=== PATIENT | male | born 1935 | race Caucasian/White ===

== ENCOUNTER 2016-08-20 20:32 | Emergency (ER) | payer MEDICARE, OTHER ==
[2016-08-20] MEDS ORDERED: Famotidine 20 MG/2 ML SDV IVPUSH ONE (20:51)
[2016-08-20] MEDS ORDERED: Sodium Chloride 0.9% 10 ML Syringe FLUSH PRN (20:51)
[2016-08-20] MEDS ORDERED: HYDROmorphone 0.5 MG/0.5 ML Syringe IVPUSH ONE (20:51)
[2016-08-20] MEDS ORDERED: Ondansetron 4 MG/2 ML SDV IVPUSH ONE (20:51)
--- NOTE | 2016-08-20 20:56 | EDM.PDOC ---
ED HPI GI/ABDOMINAL - General Chief Complaint: Chest Pain Stated Complaint: CHEST PAIN Time Seen by Provider: 08/20/16 20:43 Source of Information: Reports: Patient, RN notes reviewed - History of Present Illness INITIAL COMMENTS - FREE TEXT/NARRATIVE: 81-year-old male comes in with acute onset upper mid abdominal discomfort radiating into his back. Started about 1-1/2 hours ago shortly after eating this evening. The pain is sharp, shooting and persistent. He states this feels very similar to when he had a "gallbladder attack problem about one year ago. The pain does not go up to the mid or upper chest. Does not radiate to his left shoulder or warm. He does not feel short of breath. So far he has had no nausea or vomiting. He does have history of hypertension and is on medication for that. He is not diabetic and denies personal history for known coronary artery disease. - Related Data Allergies/ADRs: Allergies Allergy/AdvReac Type Severity Reaction Status Date / Time No Known Allergies Allergy Verified 08/20/16 20:41 Home Meds: Home Meds Acetaminophen [Tylenol Arthritis Pain] 1 tab PO BID 09/22/15 [History] Alfuzosin [Uroxatral] 10 mg PO DAILY 09/22/15 [History] Aspirin 81 mg PO DAILY 09/22/15 [History] Cetirizine [ZyrTEC] 10 mg PO DAILY 09/22/15 [History] Cinnamon Bark [Cinnamon] 1,000 mg PO DAILY 09/22/15 [History] Ezetimibe [Zetia] 5 mg PO DAILY 09/22/15 [History] Fosinopril [Monopril] 40 mg PO DAILY 09/22/15 [History] Hydrochlorothiazide 12.5 mg PO DAILY 09/22/15 [History] Multivitamin [Multivitamins] 1 tab PO BID 09/22/15 [History] Niacin [Niacin ER] 1,000 mg PO DAILY 09/22/15 [History] Omeprazole 20 mg PO BID 09/22/15 [History] Propranolol HCl 40 mg PO DAILY 09/22/15 [History] Hydrocodone/Acetaminophen [Hydrocodon-Acetaminophen 5-325] 1 - 2 each PO Q6HR PRN #20 tablet 09/23/15 [Rx] Past Medical History HEENT History: Reports: Cataract, Impaired vision Cardiovascular History: Reports: Hypertension Gastrointestinal History: Reports: GERD, PUD - Past Surgical History HEENT Surgical History: Reports: Naso-sinus surgery GI Surgical History: Reports: Other (see below) Other GI Surgeries/Procedures: hemorrhoidectomy Male Surgical History: Reports: TURP-Transurethral resection of prostate Social & Family History - Family History Family Medical History: Noncontributory Cardiac: Reports: OR - Tobacco Use Smoking Status *Q: Never Smoker Years of Tobacco use: 20 Packs/Tins Daily: 1 - Alcohol Use Number of Drinks Per Day: 1 - Recreational Drug Use Recreational Drug Use: No ED ROS GENERAL - Review of Systems Review Of Systems: See Below Constitutional: Denies: fever, chills HEENT: Reports: No symptoms Respiratory: Denies: shortness of breath, pleuritic chest pain, cough Cardiovascular: Denies: Chest pain GI/Abdominal: Reports: Abdominal pain (upper mid abdomen with radiation to his back). Denies: Diarrhea, Nausea, Vomiting Musculoskeletal: Reports: back pain. Denies: shoulder pain, arm pain Skin: Reports: no symptoms Neurological: Reports: no symptoms. Denies: dizziness ED EXAM, GI/ABD - Physical Exam Exam: See Below Exam Limited By: No limitations General Appearance: alert, moderate distress Eyes: bilateral: normal appearance, EOMI Throat/Mouth: Normal inspection, Normal oropharynx Head: atraumatic. No: facial swelling Neck: supple, full range of motion, other (no JVD) Respiratory/Chest: no respiratory distress, lungs clear, normal breath sounds Cardiovascular: regular rate, rhythm GI/Abdominal: tenderness (upper midabdomen, mild tenderness right upper quadrant , abdomen otherwise soft and nontender). No: guarding, rebound Back Exam: No: CVA tenderness (L), CVA tenderness (R) Extremities: normal inspection. No: pedal edema, leg pain Neurological: alert, oriented, no motor/sensory deficits Skin Exam: Warm, Dry, Normal color EKG INTERPRETATION EKG Date: 08/20/16 Rhythm: NSR [place]: normal P-wave: present QRS: other (Q waves present in inferior leads) ST-T: normal Course - Vital Signs Last Recorded V/S: Last Vital Signs Temp 97.4 F 08/20/16 20:36 Pulse 63 08/20/16 20:36 Resp 20 08/20/16 20:36 BP 183/103 H 08/20/16 20:36 Pulse Ox 96 08/20/16 20:36 - Orders/Labs/Meds Orders: Active Orders 24 hr Category Date Time Status EKG 12 Lead [EKG Documentation Completion] [RC] STAT Care 08/20/16 20:50 Active Peripheral IV Care [RC] . DIRECTED Care 08/20/16 20:52 Active Ketorolac [Toradol] Med 08/20/16 21:00 Active 30 mg IVPUSH ONETIME Sodium Chloride 0.9% [Normal Saline] 1,000 ml Med 08/20/16 21:00 Active IV ASDIRECTED Sodium Chloride 0.9% [Saline Flush] Med 08/20/16 20:51 Active 10 ml FLUSH ASDIRECTED PRN Peripheral IV Insertion Adult [OM.PC] Stat Oth 08/20/16 20:50 Ordered Medication Orders Sodium Chloride (Normal Saline) 1,000 mls @ 150 mls/hr IV ASDIRECTED BRIANA Last Admin: 08/20/16 21:07 Dose: 150 mls/hr Ketorolac Tromethamine (Toradol) 30 mg IVPUSH ONETIME BRIANA Last Admin: 08/20/16 21:08 Dose: 30 mg Sodium Chloride (Saline Flush) 10 ml FLUSH ASDIRECTED PRN PRN Reason: Keep Vein Open Last Admin: 08/20/16 21:10 Dose: 10 ml Labs: Laboratory Tests 08/20/16 08/20/16 Range/Units 20:45 20:45 WBC 6.71 (4.23-9.07) K/mm3 RBC 4.82 (4.63-6.08) M/mm3 Hgb 15.9 (13.7-17.5) gm/L Hct 46.2 (40.1-51.0) % MCV 95.9 H (79.0-92.2) fl MCH 33.0 H (25.7-32.2) pg MCHC 34.4 (32.2-35.5) g/dl RDW Std Deviation 43.9 (35.1-43.9) fL Plt Count 191 (163-337) K/mm3 MPV 9.3 L (9.4-12.3) fl Neut % (Auto) 64.2 (34.0-67.9) % Lymph % (Auto) 24.1 (21.8-53.1) % [place] % (Auto) 9.5 (5.3-12.2) % Eos % (Auto) 1.9 (0.8-7.0) Baso % (Auto) 0.3 (0.1-1.2) % Neut # 4.30 (1.78-5.38) K/mm3 Lymph # 1.62 (1.32-3.57) K/mm3 [place] # 0.64 (0.30-0.82) K/mm3 Eos # 0.13 (0.04-0.54) K/mm3 Baso # 0.02 (0.01-0.08) K/mm3 Sodium 143 (136-145) mEq/L Potassium 3.8 (3.5-5.1) mEq/L Chloride 103 (98-107) mEq/L Carbon Dioxide 31 (21-32) mEq/L Anion Gap 12.8 (5-15) BUN 17 (7-18) mg/dL Creatinine 1.1 (0.7-1.3) mg/dL Est Cr Clr Drug Dosing 48.33 mL/min Estimated GFR (MDRD) > 60 (>60) mL/min BUN/Creatinine Ratio 15.5 (14-18) Glucose 139 H (83-115) mg/dL Calcium 9.2 (8.5-10.1) mg/dL Total Bilirubin 0.3 (0.2-1.0) mg/dL GGT 36 (15-85) U/L AST 24 (15-37) U/L ALT 50 (16-63) U/L Alkaline Phosphatase 63 (46-116) U/L Troponin I < 0.017 (0.00-0.056) ng/mL Total Protein 7.9 (6.4-8.2) g/dl Albumin 4.0 (3.4-5.0) g/dl Globulin 3.9 gm/dL Albumin/Globulin Ratio 1.0 (1-2) Lipase 207 (73-393) U/L Meds: Medications Generic Name Dose Route Start Last Admin Trade Name Freq PRN Reason Stop Dose Admin Sodium Chloride 1,000 mls @ 150 mls/hr 08/20/16 21:00 08/20/16 21:07 Normal Saline IV 150 mls/hr ASDIRECTED BRIANA Administration Ketorolac Tromethamine 30 mg 08/20/16 21:00 08/20/16 21:08 Toradol IVPUSH 30 mg ONETIME BRIANA Administration Sodium Chloride 10 ml 08/20/16 20:51 08/20/16 21:10 Saline Flush FLUSH 10 ml ASDIRECTED PRN Administration Keep Vein Open Discontinued Medications Generic Name Dose Route Start Last Admin Trade Name Grey PRN Reason Stop Dose Admin Famotidine 20 mg 08/20/16 20:51 08/20/16 21:08 Pepcid IVPUSH 08/20/16 20:52 20 mg ONETIME ONE Administration Hydromorphone HCl 0.5 mg 08/20/16 20:51 08/20/16 21:07 Dilaudid IVPUSH 08/20/16 20:52 0.5 mg ONETIME ONE Administration Ondansetron HCl 4 mg 08/20/16 20:51 08/20/16 21:07 Zofran IVPUSH 08/20/16 20:52 4 mg ONETIME ONE Administration - Re-Assessments/Exams Free Text/Narrative Re-Assessment/Exam: 08/20/16 22:08. patient has had excellent relief of his discomfort after Dilaudid 0.5 mg IV, Toradol 30 mg IV, Levsin 0.125 sublingual. His pain is about gone. Labs are back and they all look good. He did review his ultrasound of about one year ago and he did have gallstones at that time but no obstruction or inflammation having experience symptoms very similar to what he has experienced this evening. Will Observe him for a while longer and he continues to do well should be able to let him go home. Departure - Departure Time of Disposition: 22:36 Disposition: Home, Self-Care 01 Condition: fair Clinical Impression: Abdominal pain, Gallstones Referrals: Bandar Crooks MD [Primary Care Provider] - Forms: ED Department Discharge Additional Instructions: rest, clear liquids only this evening, then clear liquids and very careful bland diet tomorrow as tolerated, avoid all fatty foods for the next several days and be careful of fatty foods after that. Return to ED if pain reoccurring or symptoms otherwise worsening in any way, followup with Dr. Dent if continuing to have abdominal discomfort, especially after eating. call [phone] if needed for appointment. Do not drive for the next 8 hours as sedative medication has been given to you while here in the ED. - My Orders Last 24 Hours: My Active Orders 08/20/16 20:50 EKG 12 Lead [EKG Documentation Completion] [RC] STAT Peripheral IV Insertion Adult [OM.PC] Stat 08/20/16 20:51 Sodium Chloride 0.9% [Saline Flush] 10 ml FLUSH ASDIRECTED PRN 08/20/16 20:52 Peripheral IV Care [RC] . DIRECTED 08/20/16 21:00 Ketorolac [Toradol] 30 mg IVPUSH ONETIME Sodium Chloride 0.9% [Normal Saline] 1,000 ml IV ASDIRECTED - Assessment/Plan Last 24 Hours: My Active Orders 08/20/16 20:50 EKG 12 Lead [EKG Documentation Completion] [RC] STAT Peripheral IV Insertion Adult [OM.PC] Stat 08/20/16 20:51 Sodium Chloride 0.9% [Saline Flush] 10 ml FLUSH ASDIRECTED PRN 08/20/16 20:52 Peripheral IV Care [RC] . DIRECTED 08/20/16 21:00 Ketorolac [Toradol] 30 mg IVPUSH ONETIME Sodium Chloride 0.9% [Normal Saline] 1,000 ml IV ASDIRECTED
[2016-08-20] MEDS ORDERED: Sodium Chloride 0.9% 1,000 ML IV SCH (21:00)
[2016-08-20] MEDS ORDERED: Ketorolac 30 MG/ML SDV IVPUSH SCH (21:00)
[2016-08-20 23:31] VITALS: BP 146/76
== END 2016-08-20 23:15 | disposition home or self-care (01) ==
LOC: JD.ED 20:32
DX: K80.20 Calculus of gallbladder without cholecystitis without obstruction (principal); I10 Essential (primary) hypertension; K21.9 Gastro-esophageal reflux disease without esophagitis; Z98.890 Other specified postprocedural states; Z79.82 Long term (current) use of aspirin; Z79.899 Other long term (current) drug therapy
CPT/HCPCS: 36415; 80053; 82977; 83690; 84484; 85025; 93005; 96361; 96374; 96375; 99285; J1170; J1885; J2405; J7040; J7050; 99284

== ENCOUNTER 2019-08-03 06:00 | Inpatient (IN) | payer MEDICARE, OTHER ==
[~2019-08-03 06:00] MED LIST: Lidocaine 1%/Sod Bicarbonate in NS 8.4% 1 ML Syringe IDERM PRN; Sodium Chloride 0.9% 10 ML Syringe FLUSH PRN
[2019-08-03] MEDS ORDERED: ceFAZolin 1 GM Vial ONE ×2 (06:18→06:30)
[2019-08-03] MEDS ORDERED: Iodine/Sodium Iodide 2% Tincture 30 ML Bottle ONE (06:18)
[2019-08-03] MEDS ORDERED: Vancomycin 1 GM SDV ONE (06:18)
[2019-08-03] MEDS ORDERED: Rocuronium 50 MG/5 ML Vial ONE (06:25)
[2019-08-03] MEDS ORDERED: Ondansetron 4 MG/2 ML SDV ONE (06:25)
[2019-08-03] MEDS ORDERED: Midazolam 1 MG/ML 2 ML SDV ONE (06:25)
[2019-08-03] MEDS ORDERED: fentaNYL 100 MCG/2 ML SDV ONE ×2 (06:25→08:15)
[2019-08-03] MEDS ORDERED: Propofol 200 MG/20 ML SDV ONE (06:25)
[2019-08-03] MEDS ORDERED: Lidocaine 1% 6 ML ONE (06:26)
[2019-08-03] MEDS ORDERED: Ropivacaine 0.5% 5 MG/ML 30 ML SDV ONE (06:33)
[2019-08-03] MEDS: Lactated Ringers 1,000 ML IV SCH ×3 (06:41→15:03)
--- NOTE | 2019-08-03 06:45 | PCM.PREANE ---
Preanesthetic Assessment - Anesthesia/Transfusion/Family Hx Anesthesia History: Prior Anesthesia Without Reaction Family History of Anesthesia Reaction: No Transfusion History: Prior Transfusion Without Reaction - Review of Systems General: No Symptoms Pulmonary: No Symptoms Cardiovascular: No Symptoms Gastrointestinal: No Symptoms Neurological: No Symptoms Other: Reports: None - Physical Assessment NPO Status Date: 08/02/19 NPO Status Time: 17:30 Vital Signs: Last Vital Signs Temp 36.3 C 08/03/19 06:10 Pulse 60 08/03/19 06:10 Resp 16 08/03/19 06:10 BP 132/73 08/03/19 06:10 Pulse Ox 99 08/03/19 06:10 Height: 1.68 m Weight: 95.254 kg ASA Class: 3 Mental Status: Alert & Oriented x3 Airway Class: Mallampati = 3 Dentition: Reports: Dentures Thyro-Mental Finger Breadths: 2 Mouth Opening Finger Breadths: 2 ROM/Head Extension: Limited/Partial Lungs: Clear to Auscultation, Normal Respiratory Effort Cardiovascular: Regular Rate, Regular Rhythm - Lab Values: Laboratory Last Values MRSA (PCR) Negative 07/21/19 14:15 - Allergies Allergies/Adverse Reactions: Allergies Allergy/AdvReac Type Severity Reaction Status Date / Time [id number] Reductase Allergy Muscle Verified 07/31/19 11:52 Inhibitor Aches - Blood Blood Available: No Product(s) Available: None - Anesthesia Plan Pre-Op Medication Ordered: Beta Andrea Beta Andrea: Propranolol Med Last Dose Date: 08/03/19 Med Last Dose Time: 05:30 - Acknowledgements Anesthesia Type Planned: General Anesthesia Pt an Appropriate Candidate for the Planned Anesthesia: Yes Alternatives and Risks of Anesthesia Discussed w Pt/Guardian: Yes Pt/Guardian Understands and Agrees with Anesthesia Plan: Yes PreAnesthesia Questionnaire HEENT History: Reports: Cataract, Impaired Vision, Other (See Below) Other HEENT History: otorrhea of left ear, otogenic pain, nasal polyps Cardiovascular History: Reports: High Cholesterol, Hypertension Respiratory History: Reports: Sleep Apnea Gastrointestinal History: Reports: Colon Polyp, GERD, PUD, Other (See Below) Other Gastrointestinal History: colon neoplasm, hemorrhage of rectum/anus Genitourinary History: Reports: BPH DIAMOND BLENDER History: Reports: None Musculoskeletal History: Reports: Other (See Below) Other Musculoskeletal History: joint pain, carpal tunnel syndrome, knee pain Neurological History: Reports: Other (See Below) Other Neuro History: cerviclagia, tremor, paresthesia Psychiatric History: Reports: None Endocrine/Metabolic History: Reports: None Hematologic History: Reports: None Immunologic History: Reports: None Oncologic (Cancer) History: Reports: Prostate Dermatologic History: Reports: Other (See Below) Other Dermatologic History: skin hypertrophy - Past Surgical History Head Surgeries/Procedures: Reports: None HEENT Surgical History: Reports: Myringotomy w Tube(s), Naso-Sinus Surgery, Other (See Below) Other HEENT Surgeries/Procedures: uvulectomy Cardiovascular Surgical History: Reports: None Respiratory Surgical History: Reports: None GI Surgical History: Reports: Colonoscopy, Other (See Below) Other GI Surgeries/Procedures: hemorrhoidectomy Female Surgical History: Reports: None Male Surgical History: Reports: TURP-Transurethral Resection of Prostate Endocrine Surgical History: Reports: None Neurological Surgical History: Reports: None Musculoskeletal Surgical History: Reports: Other (See Below) Other Musculoskeletal Surgeries/Procedures:: carpal tunnel release, right knee arthroscopy, right ulnar nerve transposition Oncologic Surgical History: Reports: None - SUBSTANCE USE Smoking Status *Q: Former Smoker Tobacco Use Within Last Twelve Months: No Second Hand Smoke Exposure: No Days Per Week of Alcohol Use: 7 Number of Drinks Per Day: 1 Total Drinks Per Week: 7 Recreational Drug Use History: No - HOME MEDS Home Medications: Home Meds Acetaminophen [Tylenol Arthritis Pain] 1 tab PO Q8H PRN 09/22/15 [History] Aspirin 81 mg PO DAILY 09/22/15 [History] Cetirizine [ZyrTEC] 10 mg PO DAILY 09/22/15 [History] Ezetimibe [Zetia] 5 mg PO DAILY 09/22/15 [History] Fosinopril [Monopril] 40 mg PO DAILY 09/22/15 [History] Hydrochlorothiazide 12.5 mg PO DAILY 09/22/15 [History] Multivitamin [Multivitamins] 1 tab PO BID 09/22/15 [History] Propranolol HCl 40 mg PO DAILY 09/22/15 [History] - CURRENT (IN HOUSE) MEDS Current Meds: Current Medications Lactated Ringer's (Ringers, Lactated) 1,000 mls @ 125 mls/hr IV ASDIRECTED BRIANA Stop: 02/24/20 23:00 Lidocaine/Sodium Bicarbonate (Buffered Lidocaine 1% In Ns 8.4%) 0.25 ml IDERM ONETIME PRN PRN Reason: Prior to IV Start Stop: 08/03/19 18:00 Sodium Chloride (Saline Flush) 10 ml FLUSH ASDIRECTED PRN PRN Reason: Keep Vein Open Stop: 08/03/19 18:00 Discontinued Medications Cefazolin Sodium (Ancef) Confirm Administered Dose 2 gm .ROUTE .STK-MED ONE Stop: 08/03/19 06:19 Cefazolin Sodium (Ancef) Confirm Administered Dose 2 gm .ROUTE .STK-MED ONE Stop: 08/03/19 06:31 Fentanyl (Sublimaze) Confirm Administered Dose 100 mcg .ROUTE .STK-MED ONE Stop: 08/03/19 06:26 Lidocaine HCl (Xylocaine-Mpf 1%) Confirm Administered Dose 6 mls @ as directed .ROUTE .STK-MED ONE Stop: 08/03/19 06:27 Iodine (Iodine 2% Mild Tincture) Confirm Administered Dose 30 ml .ROUTE .STK- MED ONE Stop: 08/03/19 06:19 Midazolam HCl (Versed 1 Mg/Ml) Confirm Administered Dose 2 mg .ROUTE .STK-MED ONE Stop: 08/03/19 06:26 Ondansetron HCl (Zofran) Confirm Administered Dose 4 mg .ROUTE .STK-MED ONE Stop: 08/03/19 06:26 Propofol (Diprivan 20 Ml) Confirm Administered Dose 200 mg .ROUTE .STK-MED ONE Stop: 08/03/19 06:26 Rocuronium [place] (Zemuron) Confirm Administered Dose 50 mg .ROUTE .STK-MED ONE Stop: 08/03/19 06:26 Ropivacaine (Naropin 0.5%) Confirm Administered Dose 30 ml .ROUTE .STK-MED ONE Stop: 08/03/19 06:34 Tranexamic Acid (Cyklokapron) Confirm Administered Dose 1,000 mg .ROUTE .STK- MED ONE Stop: 08/03/19 06:19 Vancomycin HCl (Vancomycin) Confirm Administered Dose 1 gm .ROUTE .STK-MED ONE Stop: 08/03/19 06:19
[2019-08-03] MEDS ORDERED: Cyclobenzaprine 10 MG Tab PO PRN (06:50)
[2019-08-03] MEDS ORDERED: Ketorolac 15 MG/ML SDV IVPUSH PRN (06:50)
[2019-08-03] MEDS ORDERED: Acetaminophen/HYDROcodone 325-5 MG Tab PO PRN (06:58)
[2019-08-03] MEDS ORDERED: Ondansetron 4 MG/2 ML SDV IVPUSH PRN (06:58)
[2019-08-03] MEDS ORDERED: Sennosides 8.6 MG Tab PO PRN (06:58)
[2019-08-03] MEDS ORDERED: Naloxone 0.4 MG/ML SDV IVPUSH PRN (06:58)
[2019-08-03] MEDS ORDERED: Bisacodyl 5 MG Tab PO PRN (06:58)
[2019-08-03] MEDS ORDERED: Morphine 2 MG/ML Syringe IVPUSH PRN (06:58)
[2019-08-03] MEDS ORDERED: Magnesium Hydroxide 400 MG/5 ML Susp 30 ML Cup PO PRN (06:58)
[2019-08-03] MEDS ORDERED: ePHEDrine Sulfate/0.9% NaCl/Pf 25 MG/5 ML SYRINGE IV ONE (07:31)
[2019-08-03] MEDS ORDERED: Lactated Ringers 1,000 ML ONE (07:39)
--- NOTE | 2019-08-03 08:42 | PCM.CONS ---
H&P History of Present Illness - General Date of Service: 08/03/19 Admit Problem/Dx: Admission Diagnosis/Problem Admission Diagnosis/Problem Shoulder pain Source of Information: Patient, Old Records, Provider, RN, RN Notes Reviewed History Limitations: Reports: No Limitations - History of Present Illness Initial Comments - Free Text/Narative: Nhan Mason is an 84 yo male patient of Dr. Bejarano who is post-operative day 0 of right RTSA. Hospital medicine was consulted for post-operative medical care of the following listed medical conditions. At this time he is resting comfortably in bed. Pain is controlled. He denies any chest pain, shortness of breath, palpitations, nausea, or vomiting. He carries a history of: EMILY with home CPAP, HTN, LUTS, Rectal hemorrhage, Gallstones, BPH, Tremor, HLD, Lung base scarring, Colon cancer, Paresthesia, Otorrhea of left ear. He is a former smoker. He is a full code. His primary care provider is Dr. Crooks. - Related Data Allergies/Adverse Reactions: Allergies Allergy/AdvReac Type Severity Reaction Status Date / Time Gvblqdw-Kyq-Ilr Reductase Allergy Muscle Verified 08/03/19 06:41 Inhibitor Aches Home Medications: Home Meds Aspirin 81 mg PO DAILY 09/22/15 [History] Cetirizine [ZyrTEC] 10 mg PO DAILY 09/22/15 [History] Ezetimibe [Zetia] 5 mg PO DAILY 09/22/15 [History] Fosinopril [Monopril] 40 mg PO DAILY 09/22/15 [History] Hydrochlorothiazide 12.5 mg PO DAILY 09/22/15 [History] Multivitamin [Multivitamins] 1 tab PO BID 09/22/15 [History] Propranolol HCl 40 mg PO BID 09/22/15 [History] Ibuprofen 400 mg PO BID 08/03/19 [History] Past Medical History HEENT History: Reports: Cataract, Impaired Vision, Other (See Below) Other HEENT History: otorrhea of left ear, otogenic pain, nasal polyps Cardiovascular History: Reports: High Cholesterol, Hypertension Respiratory History: Reports: Sleep Apnea Gastrointestinal History: Reports: Colon Polyp, GERD, PUD, Other (See Below) Other Gastrointestinal History: colon neoplasm, hemorrhage of rectum/anus Genitourinary History: Reports: BPH LOCAL [place] [employer] History: Reports: None Musculoskeletal History: Reports: Other (See Below) Other Musculoskeletal History: joint pain, carpal tunnel syndrome, knee pain Neurological History: Reports: Other (See Below) Other Neuro History: cerviclagia, tremor, paresthesia Psychiatric History: Reports: None Endocrine/Metabolic History: Reports: None Hematologic History: Reports: None Immunologic History: Reports: None Oncologic (Cancer) History: Reports: Prostate Dermatologic History: Reports: Other (See Below) Other Dermatologic History: skin hypertrophy - Past Surgical History Head Surgeries/Procedures: Reports: None HEENT Surgical History: Reports: Myringotomy w Tube(s), Naso-Sinus Surgery, Other (See Below) Other HEENT Surgeries/Procedures: uvulectomy Cardiovascular Surgical History: Reports: None Respiratory Surgical History: Reports: None GI Surgical History: Reports: Colonoscopy, Other (See Below) Other GI Surgeries/Procedures: hemorrhoidectomy Female Surgical History: Reports: None Male Surgical History: Reports: TURP-Transurethral Resection of Prostate Endocrine Surgical History: Reports: None Neurological Surgical History: Reports: None Musculoskeletal Surgical History: Reports: Other (See Below) Other Musculoskeletal Surgeries/Procedures:: carpal tunnel release, right knee arthroscopy, right ulnar nerve transposition Oncologic Surgical History: Reports: None Social & Family History - Family History Family Medical History: Noncontributory Cardiac: Reports: [place] - Tobacco Use Smoking Status *Q: Former Smoker Used Tobacco, but Quit: Yes Month/Year Tobacco Last Used: 1969 Second Hand Smoke Exposure: No - Caffeine Use Caffeine Use: Reports: Tea - Alcohol Use Days Per Week of Alcohol Use: 7 Number of Drinks Per Day: 1 Total Drinks Per Week: 7 - Recreational Drug Use Recreational Drug Use: No H&P Review of Systems - Review of Systems: Review Of Systems: See Below General: Reports: No Symptoms. Denies: Fever, Chills HEENT: Reports: Rhinitis (chronic ), Post Nasal Drip. Denies: Headaches, Sore Throat Pulmonary: Reports: No Symptoms. Denies: Shortness of Breath, Wheezing, Cough, Sputum Cardiovascular: Reports: No Symptoms. Denies: Chest Pain, Palpitations, Dyspnea on Exertion Gastrointestinal: Reports: No Symptoms. Denies: Abdominal Pain, Constipation, Diarrhea, Nausea, Vomiting Genitourinary: Reports: No Symptoms. Denies: Pain Musculoskeletal: Reports: Shoulder Pain Skin: Reports: No Symptoms. Denies: Cyanosis Psychiatric: Reports: No Symptoms. Denies: Confusion Neurological: Reports: No Symptoms. Denies: Pre-Existing Deficit, Difficulty Walking, Gait Disturbance Hematologic/Lymphatic: Reports: No Symptoms Immunologic: Reports: No Symptoms Exam - Exam Exam: See Below - Vital Signs Vital Signs: Last Vital Signs Temp 97.3 F 08/03/19 06:10 Pulse 57 L 08/03/19 07:10 Resp 10 L 08/03/19 07:10 BP 115/69 08/03/19 07:10 Pulse Ox 98 08/03/19 07:10 Weight: 210 lb - Exam Quality Assessment: Supplemental Oxygen (1L ), DVT Prophylaxis General: Alert, Oriented, Cooperative. No: Mild Distress HEENT: Conjunctiva Clear, EACs Clear, Hearing Intact, Mucosa Moist & [place], Nares Patent, Posterior Pharynx Clear, PERRLA Neck: Supple, Trachea Midline Lungs: Clear to Auscultation, Normal Respiratory Effort Cardiovascular: Regular Rate, Regular Rhythm GI/Abdominal Exam: Normal Bowel Sounds, Soft, Non-Tender, No Distention (Male) Exam: Deferred Rectal (Males) Exam: Deferred Back Exam: Normal Inspection, Full Range of Motion Extremities: Normal Capillary Refill, Arm Pain (right shoulder ), Limited Range of Motion, Other (Bandage in place on right shoulder. Bandage is dry and intact. Cooling pack in place. Sling and swathe on right shoulder. ) Peripheral Pulses: 2+: Radial (L), Radial (R), Dorsalis Pedis (L), Dorsalis Pedis (R) Skin: Warm, Dry, Intact Neurological: Cranial Nerves Intact (Grossly ) Neuro Extensive - Mental Status: Alert, Oriented x3 Sepsis Event Note - Evaluation Sepsis Screening Result: No Definite Risk - Focused Exam Vital Signs: Vital Signs Temp Pulse Resp BP Pulse Ox 08/03/19 07:10 57 L 10 L 115/69 98 08/03/19 07:00 58 L 10 L 125/72 100 08/03/19 06:56 55 L 8 L 130/75 100 08/03/19 06:10 97.3 F 60 16 132/73 99 Date Exam was Performed: 08/03/19 Time Exam was Performed: 18:12 Consult PN Assessment/Plan POD#: 0 Procedures: Procedures ASSAY OF GGT (08/20/16) ASSAY OF LIPASE (08/20/16) ASSAY OF TROPONIN QUANT (08/20/16) CHEST X-RAY 1 VIEW FRONTAL (09/22/15) COMPLETE CBC W/AUTO DIFF WBC (08/20/16) COMPREHEN METABOLIC PANEL (08/20/16) ECHO EXAM OF ABDOMEN (09/22/15) ELECTROCARDIOGRAM TRACING (08/20/16) EMERGENCY DEPT VISIT (08/20/16) HELICOBACTER PYLORI ANTIBODY (09/22/15) HYDRATE IV INFUSION ADD-ON (08/20/16) ROUTINE VENIPUNCTURE (08/20/16) THER/PROPH/DIAG INJ IV PUSH (08/20/16) TX/PRO/DX INJ NEW DRUG ADDON (08/20/16) (1) S/p reverse total shoulder arthroplasty SNOMED Code(s): 178420904, 090195377 Code(s): Z96.619 - PRESENCE OF UNSPECIFIED ARTIFICIAL SHOULDER JOINT Priority: High Current Visit: Yes Qualifiers: Laterality: right Qualified Code(s): Z96.611 - Presence of right artificial shoulder joint (2) Osteoarthritis SNOMED Code(s): 090373017 Code(s): M19.90 - UNSPECIFIED OSTEOARTHRITIS, UNSPECIFIED SITE Priority: High Current Visit: Yes Qualifiers: Osteoarthritis location: shoulder Osteoarthritis type: primary Laterality : right Qualified Code(s): M19.011 - Primary osteoarthritis, right shoulder (3) EMILY (obstructive sleep apnea) SNOMED Code(s): 57864629 Code(s): G47.33 - OBSTRUCTIVE SLEEP APNEA (ADULT) (PEDIATRIC) Priority: Medium Current Visit: Yes (4) HTN (hypertension) SNOMED Code(s): 09857292 Code(s): I10 - ESSENTIAL (PRIMARY) HYPERTENSION Priority: Medium Current Visit: No Qualifiers: Hypertension type: unspecified Qualified Code(s): I10 - Essential (primary ) hypertension (5) Otorrhea of left ear SNOMED Code(s): 82396947 Code(s): H92.12 - OTORRHEA, LEFT EAR Priority: Low Current Visit: No (6) Lower urinary tract symptoms (LUTS) SNOMED Code(s): 411932636 Code(s): R39.9 - UNSP SYMPTOMS AND SIGNS INVOLVING THE GENITOURINARY SYSTEM Priority: Low Current Visit: No (7) History of rectal bleeding SNOMED Code(s): 61385523959498784 Code(s): Z87.19 - PERSONAL HISTORY OF OTHER DISEASES OF THE DIGESTIVE SYSTEM Priority: Low Current Visit: No (8) BPH (benign prostatic hyperplasia) SNOMED Code(s): 902685860 Code(s): N40.0 - BENIGN PROSTATIC HYPERPLASIA WITHOUT LOWER URINRY TRACT SYMP Priority: Low Current Visit: No Qualifiers: Lower urinary tract symptom presence: unspecified whether lower urinary tract symptoms present Qualified Code(s): N40.0 - Benign prostatic hyperplasia without lower urinary tract symptoms (9) Tremor SNOMED Code(s): 47141375 Code(s): R25.1 - TREMOR, UNSPECIFIED Priority: Low Current Visit: No (10) HLD (hyperlipidemia) SNOMED Code(s): 32955385 Code(s): E78.5 - HYPERLIPIDEMIA, UNSPECIFIED Priority: Low Current Visit : No Qualifiers: Hyperlipidemia type: unspecified Qualified Code(s): E78.5 - Hyperlipidemia , unspecified (11) History of colon cancer SNOMED Code(s): 749888654 Code(s): Z85.038 - PERSONAL HISTORY OF MALIGNANT NEOPLASM OF LARGE INTESTINE Priority: Low Current Visit: No (12) Scarring of lung SNOMED Code(s): 240536447 Code(s): J98.4 - OTHER DISORDERS OF LUNG Priority: Medium Current Visit: No (13) Former smoker SNOMED Code(s): 8840141 Code(s): Z87.891 - PERSONAL HISTORY OF NICOTINE DEPENDENCE Priority: Medium Current Visit: No (14) Gallstones SNOMED Code(s): 816477159 Code(s): K80.20 - CALCULUS OF GALLBLADDER W/O CHOLECYSTITIS W/O OBSTRUCTION Priority: Low Current Visit: No Problem List Initiated/Reviewed/Updated: Yes Plan: I/P: Acute: S/P right reverse total shoulder arthroplasty - post-operative day 0 -DVT prophylaxis and pain management per primary care team -PT/OT -IS/RT -Monitor oxygen saturation -Titrate oxygen as needed -Home medications reviewed -Vital signs stable -Monitor labs -Pre-operative Hgb was 15.1 -Pre-operative GFR was 61 -Pre-operative 12-lead EKG showed a RSR' in V1 and V2, Old infarct, sinus rhythm Osteoarthritis of right shoulder -Pain management per primary care team Chronic: EMILY HTN LUTS Rectal hemorrhage Gallstones BPH Tremor HLD Lung base scarring Colon cancer Paresthesia Otorrhea of left ear Plan: CM for discharge planning GI prophylaxis Home medications as indicated Other orders as listed above Routine AM labs He is a full code. His PCP is Dr. Crooks Thank you for allowing us to participate in the care of this patient!! Requesting Provider: Dr. Bejarano Date Consult Requested: 08/03/19 Patient History Reviewed: Yes Admission H&P Reviewed: Yes Notified Requestor: Yes
[2019-08-03] MEDS ORDERED: fentaNYL 100 MCG/2 ML SDV IVPUSH PRN (09:29)
--- NOTE | 2019-08-03 09:30 | PCM.POSTAN ---
POST ANESTHESIA ASSESSMENT - MENTAL STATUS Mental Status: Alert, Oriented - VITAL SIGNS Vital Signs: Last Vital Signs Temp 36.3 C 08/03/19 09:21 Pulse 57 L 08/03/19 07:10 Resp 13 08/03/19 09:21 BP 129/58 L 08/03/19 09:21 Pulse Ox 93 L 08/03/19 09:21 - RESPIRATORY Respiratory Status: Respiratory Rate WNL, Airway Patent, O2 Saturation Stable, Supplemental Oxygen - CARDIOVASCULAR CV Status: Pulse Rate WNL, Blood Pressure Stable - GASTROINTESTINAL GI Status: No Symptoms - PAIN Pain Score: 0 - POST OP HYDRATION Hydration Status: Adequate & Stable - OBSERVATIONS Free Text/Narrative:: no anesthesia complications noted
--- NOTE | 2019-08-03 09:39 | PCM.SN ---
- Free Text/Narrative Note: -Interscalene nerve block note Date: 08/03/2019 Start: 656 Time Out: 656 Stop: 708 Procedure: Right interscalene block under US guidance for postoperative pain control requested by Dr. Bejarano Patient chart reviewed, risk/benefits discussed with patient, consent obtained. Patient positioned supine, monitors/alarms on, oxygen placed via nasal cannula at 2 LPM, 1ml versed, 1ml fentanyl. Right shoulder prepped with chloraprep x2. Sterile drapes placed with aseptic technique. Under US guidance, left subclavian artery visualized along with the brachial plexus. Plexus followed cephalad up to C6 cricoid level, and area localized with 1mls of 1% lidocaine. 22gauge 2 inch stimiplex needle inserted under US and guided to brachial plexus C5-C6 trunks with 0.44mV with stimulation of biceps noted. Stimulation abolished at 0.4mVs. 1ml of Normal Saline injected with loss of stimulation. Incremental injection of 5mls with negative aspiration prior to each injection of 0.5% ropivacaine with 1:200,000 epinephrine. Total volume=30mls. Refer to nurses notes for vital signs and medication administration. Patient tolerated procedure well. No complications noted. Trent Wayne CRNA
[2019-08-03] MEDS: Acetaminophen/HYDROcodone 325-5 MG Tab PO PRN ×3 (10:03→23:20)
--- NOTE | 2019-08-03 12:14 | CR ---
Right shoulder: Two fluoroscopic spot views were obtained of the right shoulder utilizing C-arm device. Study shows placement of a reverse right shoulder prosthesis. Underlying bony structures are grossly intact. Fluoroscopy time not given at time of dictation. Impression: 1. Procedural study as noted above. Diagnostic code #2 This report was dictated in [place] Standard Time
--- NOTE | 2019-08-03 12:14 | CR ---
Right shoulder: Single AP view of the right shoulder was obtained utilizing portable technique. Comparison: Prior right shoulder radiographic study of 07/25/10. Right shoulder prosthesis is seen. Shoulder prosthesis is of the reverse type. Components are aligned. Underlying bony structures are intact. Soft tissue air noted from the surgical procedure. Impression: 1. Satisfactory postop radiographic appearance of recently placed right shoulder prosthesis. Diagnostic code #2 This report was dictated in [place] [employer] Time
[2019-08-03] MEDS: ceFAZolin 2 GM in Premix Bag 1 BAG IV SCH ×2 (15:03→22:19)
[2019-08-03] MEDS: Docusate Sodium 100 MG Cap PO SCH (20:12)
[2019-08-03] MEDS: Multivitamins,Therapeutic Tab PO SCH (20:12)
[2019-08-03] MEDS ORDERED: Famotidine 20 MG Tab PO SCH (21:00)
[2019-08-04] MEDS: Acetaminophen/HYDROcodone 325-5 MG Tab PO PRN (05:09)
[2019-08-04] MEDS: ceFAZolin 2 GM in Premix Bag 1 BAG IV SCH (06:03)
--- NOTE | 2019-08-04 07:26 | PCM.CONSN ---
- General Info Date of Service: 08/04/19 Admission Dx/Problem (Free Text): Admission Diagnosis/Problem Admission Diagnosis/Problem Shoulder pain Functional Status: Reports: Pain Controlled, Tolerating Diet, Ambulating, Urinating, Incentive Spirometry. Denies: New Symptoms - Review of Systems General: Reports: No Symptoms. Denies: Fever, Chills HEENT: Reports: No Symptoms. Denies: Headaches, Sore Throat Pulmonary: Reports: No Symptoms. Denies: Shortness of Breath, Cough, Sputum, Wheezing Cardiovascular: Reports: No Symptoms. Denies: Chest Pain, Palpitations, Dyspnea on Exertion Gastrointestinal: Reports: No Symptoms. Denies: Abdominal Pain, Constipation, Diarrhea, Nausea, Vomiting Genitourinary: Reports: No Symptoms. Denies: Pain Musculoskeletal: Reports: No Symptoms, Shoulder Pain Skin: Reports: No Symptoms. Denies: Cyanosis Neurological: Reports: No Symptoms. Denies: Confusion, Difficulty Walking, Gait Disturbance Psychiatric: Reports: No Symptoms - Patient Data Vitals - Most Recent: Last Vital Signs Temp 98.6 F 08/04/19 04:00 Pulse 96 08/04/19 04:00 Resp 18 08/04/19 04:00 BP 116/72 08/04/19 04:00 Pulse Ox 98 08/04/19 04:00 Weight - Most Recent: 220 lb I&O - Last 24 Hours: Intake & Output 08/03/19 08/04/19 08/04/19 22:59 06:59 14:59 Intake Total 110 1980 Output Total 400 Balance -290 1980 Lab Results Last 24 Hours: Laboratory Results - last 24 hr 08/04/19 08/04/19 Range/Units 05:14 05:14 WBC 10.20 H (4.23-9.07) K/mm3 RBC 3.70 L (4.63-6.08) M/mm3 Hgb 11.7 L D (13.7-17.5) gm/dl Hct 36.8 L (40.1-51.0) % MCV 99.5 H (79.0-92.2) fl MCH 31.6 (25.7-32.2) pg MCHC 31.8 L (32.2-35.5) g/dl RDW Std Deviation 43.1 (35.1-43.9) fL Plt Count 184 (163-337) K/mm3 MPV 9.4 (9.4-12.3) fl Sodium 138 (136-145) mEq/L Potassium 3.8 (3.5-5.1) mEq/L Chloride 102 (98-107) mEq/L Carbon Dioxide 29 (21-32) mEq/L Anion Gap 10.8 (5-15) BUN 15 (7-18) mg/dL Creatinine 1.4 H (0.7-1.3) mg/dL Est Cr Clr Drug Dosing 36.08 mL/min Estimated GFR (MDRD) 48 (>60) mL/min BUN/Creatinine Ratio 10.7 L (14-18) Glucose 164 H (83-115) mg/dL Calcium 8.3 L (8.5-10.1) mg/dL Total Bilirubin 0.8 (0.2-1.0) mg/dL AST 27 (15-37) U/L ALT 30 (16-63) U/L Alkaline Phosphatase 58 (46-116) U/L Total Protein 6.4 (6.4-8.2) g/dl Albumin 2.7 L (3.4-5.0) g/dl Globulin 3.7 gm/dL Albumin/Globulin Ratio 0.7 L (1-2) Med Orders - Current: Current Medications Hydrocodone Bitart/Acetaminophen ([place] 325-5 Mg) 1 - 2 tab PO Q4H PRN PRN Reason: Pain Last Admin: 08/04/19 05:09 Dose: 1 tab Aspirin (Ecotrin) 325 mg PO DAILY [facility] Bisacodyl (Dulcolax) 5 mg PO DAILY PRN PRN Reason: Constipation Cyclobenzaprine HCl (Flexeril) 5 mg PO BID PRN PRN Reason: Spasms Last Admin: 08/03/19 20:12 Dose: 5 mg Docusate Sodium (Colace) 100 mg PO BID [facility] Last Admin: 08/03/19 20:12 Dose: 100 mg Ezetimibe (Zetia) 5 mg PO DAILY [facility] Famotidine (Pepcid) 20 mg PO Q12H [facility] Last Admin: 08/03/19 20:12 Dose: 20 mg Lisinopril (Prinivil) 20 mg PO DAILY [facility] Loratadine (Claritin) 10 mg PO DAILY [facility] Magnesium Hydroxide (Milk Of Magnesia) 30 ml PO BID PRN PRN Reason: Constipation Morphine Sulfate (Morphine) 2 mg IVPUSH Q2H PRN PRN Reason: Breakthrough Pain Last Admin: 08/04/19 01:34 Dose: 2 mg Multivitamins (Thera) 1 each PO BID [facility] Last Admin: 08/03/19 20:12 Dose: 1 each Naloxone HCl (Narcan) 0.1 mg IVPUSH Q5M PRN PRN Reason: Oversedation Ondansetron HCl (Zofran) 4 mg IVPUSH Q6H PRN PRN Reason: Nausea/Vomiting Propranolol HCl (Inderal) 40 mg PO DAILY [facility] Senna (Senna) 8.6 mg PO BID PRN PRN Reason: Constipation Discontinued Medications Hydrocodone Bitart/Acetaminophen ([place] 325-5 Mg) 1 - 2 tab PO Q4H PRN PRN Reason: Pain Cefazolin Sodium (Ancef) Confirm Administered Dose 2 gm .ROUTE .STK-MED ONE Stop: 08/03/19 06:19 Last Admin: 08/03/19 08:04 Dose: 2 gm Cefazolin Sodium (Ancef) Confirm Administered Dose 2 gm .ROUTE .STK-MED ONE Stop: 08/03/19 06:31 Ephedrine Sulfate (Ephedrine 25 Mg/5 Ml Syringe) Confirm Administered Dose 25 mg IV .STK-MED ONE Stop: 08/03/19 07:32 Fentanyl (Sublimaze) Confirm Administered Dose 100 mcg .ROUTE .STK-MED ONE Stop: 08/03/19 06:26 Fentanyl (Sublimaze) Confirm Administered Dose 100 mcg .ROUTE .STK-MED ONE Stop: 08/03/19 08:16 Fentanyl (Sublimaze) 50 mcg IVPUSH Q5M PRN PRN Reason: Pain Stop: 08/03/19 18:00 Last Admin: 08/03/19 10:01 Dose: 50 mcg Lactated Ringer's (Ringers, Lactated) 1,000 mls @ 125 mls/hr IV ASDIRECTED [facility] Stop: 08/03/19 23:00 Last Admin: 08/03/19 15:03 Dose: 125 mls/hr Lidocaine HCl (Xylocaine-Mpf 1%) Confirm Administered Dose 6 mls @ as directed .ROUTE .STK-MED ONE Stop: 08/03/19 06:27 Cefazolin Sodium/Dextrose 2 gm (/ Premix) 50 mls @ 100 mls/hr IV Q8H [facility] Stop: 08/04/19 06:59 Last Admin: 08/04/19 06:03 Dose: 100 mls/hr Lactated Ringer's (Ringers, Lactated) Confirm Administered Dose 1,000 mls @ as directed .ROUTE .STK-MED ONE Stop: 08/03/19 07:40 Iodine (Iodine 2% Mild Tincture) Confirm Administered Dose 30 ml .ROUTE .STK- MED ONE Stop: 08/03/19 06:19 Last Admin: 08/03/19 08:04 Dose: 18 ml Ketorolac Tromethamine (Toradol) 15 mg IVPUSH Q6H PRN PRN Reason: Pain Last Admin: 08/03/19 15:04 Dose: 15 mg Lidocaine/Sodium Bicarbonate (Buffered Lidocaine 1% In Ns 8.4%) 0.25 ml IDERM ONETIME PRN PRN Reason: Prior to IV Start Stop: 08/03/19 18:00 Last Admin: 08/03/19 06:41 Dose: 0.25 ml Midazolam HCl (Versed 1 Mg/Ml) Confirm Administered Dose 2 mg .ROUTE .STK-MED ONE Stop: 08/03/19 06:26 Ondansetron HCl (Zofran) Confirm Administered Dose 4 mg .ROUTE .STK-MED ONE Stop: 08/03/19 06:26 Propofol (Diprivan 20 Ml) Confirm Administered Dose 200 mg .ROUTE .STK-MED ONE Stop: 08/03/19 06:26 Rocuronium [place] (Zemuron) Confirm Administered Dose 50 mg .ROUTE .STK-MED ONE Stop: 08/03/19 06:26 Ropivacaine (Naropin 0.5%) Confirm Administered Dose 30 ml .ROUTE .STK-MED ONE Stop: 08/03/19 06:34 Sodium Chloride (Saline Flush) 10 ml FLUSH ASDIRECTED PRN PRN Reason: Keep Vein Open Stop: 08/03/19 18:00 Tranexamic Acid (Cyklokapron) Confirm Administered Dose 1,000 mg .ROUTE .STK- MED ONE Stop: 08/03/19 06:19 Last Admin: 08/03/19 08:06 Dose: 1,000 mg Vancomycin HCl (Vancomycin) Confirm Administered Dose 1 gm .ROUTE .STK-MED ONE Stop: 08/03/19 06:19 Last Admin: 08/03/19 08:05 Dose: 1 gm - Exam Quality Assessment: DVT Prophylaxis General: Alert, Oriented, Cooperative, No Acute Distress HEENT: Pupils Equal, Pupils Reactive, Mucous Membr. Moist/[place] Neck: Supple, Trachea Midline Lungs: Clear to Auscultation, Normal Respiratory Effort Cardiovascular: Regular Rate, Regular Rhythm GI/Abdominal Exam: Normal Bowel Sounds, Soft, Non-Tender, No Distention (Male) Exam: Deferred Back Exam: Normal Inspection, Full Range of Motion Extremities: Normal Capillary Refill, Arm Pain (right ), Limited Range of Motion , Other (Bandage in place on right shoulder. Cooling pack in place. Sling and swathe on right shoulder ) Peripheral Pulses: 2+: Radial (L), Radial (R), Dorsalis Pedis (L), Dorsalis Pedis (R) Skin: Warm, Dry, Intact Wound/Incisions: Dressing Dry and Intact Neurological: No New Focal Deficit Psy/Mental Status: Alert, Normal Affect, Normal Mood Sepsis Event Note - Evaluation Sepsis Screening Result: No Definite Risk - Focused Exam Vital Signs: Vital Signs Temp Pulse Resp BP Pulse Ox Pulse Ox 08/04/19 04:00 98.6 F 96 18 116/72 98 08/03/19 23:45 99.5 F 18 123/77 98 08/03/19 20:55 98 08/03/19 20:00 99.2 F 92 18 115/70 94 L Date Exam was Performed: 08/04/19 Time Exam was Performed: 11:30 Consult PN Assessment/Plan POD#: 1 Procedures: Procedures ASSAY OF GGT (08/20/16) ASSAY OF LIPASE (08/20/16) ASSAY OF TROPONIN QUANT (08/20/16) CHEST X-RAY 1 VIEW FRONTAL (09/22/15) COMPLETE CBC W/AUTO DIFF WBC (08/20/16) COMPREHEN METABOLIC PANEL (08/20/16) ECHO EXAM OF ABDOMEN (09/22/15) ELECTROCARDIOGRAM TRACING (08/20/16) EMERGENCY DEPT VISIT (08/20/16) HELICOBACTER PYLORI ANTIBODY (09/22/15) HYDRATE IV INFUSION ADD-ON (08/20/16) ROUTINE VENIPUNCTURE (08/20/16) THER/PROPH/DIAG INJ IV PUSH (08/20/16) TX/PRO/DX INJ NEW DRUG ADDON (08/20/16) (1) S/p reverse total shoulder arthroplasty SNOMED Code(s): 091556798, 379093090 Code(s): Z96.619 - PRESENCE OF UNSPECIFIED ARTIFICIAL SHOULDER JOINT Priority: High Qualifiers: Laterality: right Qualified Code(s): Z96.611 - Presence of right artificial shoulder joint (2) Osteoarthritis SNOMED Code(s): 132134898 Code(s): M19.90 - UNSPECIFIED OSTEOARTHRITIS, UNSPECIFIED SITE Priority: High Qualifiers: Osteoarthritis location: shoulder Osteoarthritis type: primary Laterality : right Qualified Code(s): M19.011 - Primary osteoarthritis, right shoulder (3) EMILY (obstructive sleep apnea) SNOMED Code(s): 00829641 Code(s): G47.33 - OBSTRUCTIVE SLEEP APNEA (ADULT) (PEDIATRIC) Priority: Medium (4) HTN (hypertension) SNOMED Code(s): 78504900 Code(s): I10 - ESSENTIAL (PRIMARY) HYPERTENSION Priority: Medium Qualifiers: Hypertension type: unspecified Qualified Code(s): I10 - Essential (primary ) hypertension (5) Otorrhea of left ear SNOMED Code(s): 75835525 Code(s): H92.12 - OTORRHEA, LEFT EAR Priority: Low (6) Lower urinary tract symptoms (LUTS) SNOMED Code(s): 844596625 Code(s): R39.9 - UNSP SYMPTOMS AND SIGNS INVOLVING THE GENITOURINARY SYSTEM Priority: Low (7) History of rectal bleeding SNOMED Code(s): 69575083830446930 Code(s): Z87.19 - PERSONAL HISTORY OF OTHER DISEASES OF THE DIGESTIVE SYSTEM Priority: Low (8) BPH (benign prostatic hyperplasia) SNOMED Code(s): 517410669 Code(s): N40.0 - BENIGN PROSTATIC HYPERPLASIA WITHOUT LOWER URINRY TRACT SYMP Priority: Low Qualifiers: Lower urinary tract symptom presence: unspecified whether lower urinary tract symptoms present Qualified Code(s): N40.0 - Benign prostatic hyperplasia without lower urinary tract symptoms (9) Tremor SNOMED Code(s): 89687507 Code(s): R25.1 - TREMOR, UNSPECIFIED Priority: Low (10) HLD (hyperlipidemia) SNOMED Code(s): 40083991 Code(s): E78.5 - HYPERLIPIDEMIA, UNSPECIFIED Priority: Low Qualifiers: Hyperlipidemia type: unspecified Qualified Code(s): E78.5 - Hyperlipidemia , unspecified (11) History of colon cancer SNOMED Code(s): 065899566 Code(s): Z85.038 - PERSONAL HISTORY OF MALIGNANT NEOPLASM OF LARGE INTESTINE Priority: Low (12) Scarring of lung SNOMED Code(s): 408581278 Code(s): J98.4 - OTHER DISORDERS OF LUNG Priority: Medium (13) Former smoker SNOMED Code(s): 2832947 Code(s): Z87.891 - PERSONAL HISTORY OF NICOTINE DEPENDENCE Priority: Medium (14) Gallstones SNOMED Code(s): 998351955 Code(s): K80.20 - CALCULUS OF GALLBLADDER W/O CHOLECYSTITIS W/O OBSTRUCTION Priority: Low Problem List Initiated/Reviewed/Updated: Yes Plan: I/P: Acute: S/P right reverse total shoulder arthroplasty - post-operative day 1 -DVT prophylaxis and pain management per primary care team -PT/OT -IS/RT -Monitor oxygen saturation -Titrate oxygen as needed -Home medications reviewed -Vital signs stable -Monitor labs -Pre-operative Hgb was 15.1; Now 11.7 -Pre-operative GFR was 61; Now 48 -Pre-operative 12-lead EKG showed a RSR' in V1 and V2, Old infarct, sinus rhythm Osteoarthritis of right shoulder -Pain management per primary care team Chronic: EMILY HTN LUTS Rectal hemorrhage Gallstones BPH Tremor HLD Lung base scarring Colon cancer Paresthesia Otorrhea of left ear Plan: CM for discharge planning GI prophylaxis Home medications as indicated Other orders as listed above Routine AM labs He is a full code. His PCP is Dr. Crooks From a hospitalist standpoint Nhan is doing pretty well. He has been up ambulating and working with therapies. He is off of oxygen and has urinated. His vital signs have been stable and his labs have been grossly stable. His GFR did decrease slightly and we discussed oral hydration. He has been utilizing his IS. He is cleared for discharge pending primary team and PT/OT agreement. Thank you for allowing us to participate in the care of this patient!!
--- NOTE | 2019-08-04 07:44 | PCM48HPAN ---
Post Anesthesia Note - EVALUATION WITHIN 48HRS OF ANESTHETIC Vital Signs in Normal Range: Yes Patient Participated in Evaluation: Yes Respiratory Function Stable: Yes Airway Patent: Yes Cardiovascular Function Stable: Yes Hydration Status Stable: Yes Pain Control Satisfactory: Yes Nausea and Vomiting Control Satisfactory: Yes Mental Status Recovered: Yes Vital Signs: Last Vital Signs Temp 37.0 C 08/04/19 04:00 Pulse 96 08/04/19 04:00 Resp 18 08/04/19 04:00 BP 116/72 08/04/19 04:00 Pulse Ox 98 08/04/19 04:00 - COMMENTS/OBSERVATIONS Free Text/Narrative:: no anesthesia complications noted
--- NOTE | 2019-08-04 08:53 | PCM.SURGPN ---
- General Info Date of Service: 08/04/19 POD#: 1 Functional Status: Reports: Pain Controlled, Tolerating Diet, Ambulating, Urinating, Incentive Spirometry, Other (Therapy and pt state the pt has been doing well.) - Patient Data Vitals - Most Recent: Last Vital Signs Temp 98.6 F 08/04/19 04:00 Pulse 96 08/04/19 04:00 Resp 18 08/04/19 04:00 BP 116/72 08/04/19 04:00 Pulse Ox 98 08/04/19 04:00 Weight - Most Recent: 220 lb I&O - Last 24 Hours: Intake & Output 08/03/19 08/04/19 08/04/19 22:59 06:59 14:59 Intake Total 110 1979 Output Total 400 Balance -290 1979 Lab Results Last 24 Hrs: Laboratory Results - last 24 hr 08/04/19 08/04/19 Range/Units 05:14 05:14 WBC 10.20 H (4.23-9.07) K/mm3 RBC 3.70 L (4.63-6.08) M/mm3 Hgb 11.7 L D (13.7-17.5) gm/dl Hct 36.8 L (40.1-51.0) % MCV 99.5 H (79.0-92.2) fl MCH 31.6 (25.7-32.2) pg MCHC 31.8 L (32.2-35.5) g/dl RDW Std Deviation 43.1 (35.1-43.9) fL Plt Count 184 (163-337) K/mm3 MPV 9.4 (9.4-12.3) fl Sodium 138 (136-145) mEq/L Potassium 3.8 (3.5-5.1) mEq/L Chloride 102 (98-107) mEq/L Carbon Dioxide 29 (21-32) mEq/L Anion Gap 10.8 (5-15) BUN 15 (7-18) mg/dL Creatinine 1.4 H (0.7-1.3) mg/dL Est Cr Clr Drug Dosing 36.08 mL/min Estimated GFR (MDRD) 48 (>60) mL/min BUN/Creatinine Ratio 10.7 L (14-18) Glucose 164 H (83-115) mg/dL Calcium 8.3 L (8.5-10.1) mg/dL Total Bilirubin 0.8 (0.2-1.0) mg/dL AST 27 (15-37) U/L ALT 30 (16-63) U/L Alkaline Phosphatase 58 (46-116) U/L Total Protein 6.4 (6.4-8.2) g/dl Albumin 2.7 L (3.4-5.0) g/dl Globulin 3.7 gm/dL Albumin/Globulin Ratio 0.7 L (1-2) Med Orders - Current: Current Medications Hydrocodone Bitart/Acetaminophen ([place] 325-5 Mg) 1 - 2 tab PO Q4H PRN PRN Reason: Pain Last Admin: 08/04/19 05:09 Dose: 1 tab Aspirin (Ecotrin) 325 mg PO DAILY [facility] Bisacodyl (Dulcolax) 5 mg PO DAILY PRN PRN Reason: Constipation Cyclobenzaprine HCl (Flexeril) 5 mg PO BID PRN PRN Reason: Spasms Last Admin: 08/03/19 20:12 Dose: 5 mg Docusate Sodium (Colace) 100 mg PO BID [facility] Last Admin: 08/03/19 20:12 Dose: 100 mg Ezetimibe (Zetia) 5 mg PO DAILY [facility] Famotidine (Pepcid) 20 mg PO Q12H [facility] Last Admin: 08/03/19 20:12 Dose: 20 mg Lisinopril (Prinivil) 20 mg PO DAILY [facility] Loratadine (Claritin) 10 mg PO DAILY [facility] Magnesium Hydroxide (Milk Of Magnesia) 30 ml PO BID PRN PRN Reason: Constipation Morphine Sulfate (Morphine) 2 mg IVPUSH Q2H PRN PRN Reason: Breakthrough Pain Last Admin: 08/04/19 01:34 Dose: 2 mg Multivitamins (Thera) 1 each PO BID [facility] Last Admin: 08/03/19 20:12 Dose: 1 each Naloxone HCl (Narcan) 0.1 mg IVPUSH Q5M PRN PRN Reason: Oversedation Ondansetron HCl (Zofran) 4 mg IVPUSH Q6H PRN PRN Reason: Nausea/Vomiting Propranolol HCl (Inderal) 40 mg PO DAILY [facility] Senna (Senna) 8.6 mg PO BID PRN PRN Reason: Constipation Discontinued Medications Hydrocodone Bitart/Acetaminophen ([place] 325-5 Mg) 1 - 2 tab PO Q4H PRN PRN Reason: Pain Cefazolin Sodium (Ancef) Confirm Administered Dose 2 gm .ROUTE .STK-MED ONE Stop: 08/03/19 06:19 Last Admin: 08/03/19 08:04 Dose: 2 gm Cefazolin Sodium (Ancef) Confirm Administered Dose 2 gm .ROUTE .STK-MED ONE Stop: 08/03/19 06:31 Ephedrine Sulfate (Ephedrine 25 Mg/5 Ml Syringe) Confirm Administered Dose 25 mg IV .STK-MED ONE Stop: 08/03/19 07:32 Fentanyl (Sublimaze) Confirm Administered Dose 100 mcg .ROUTE .STK-MED ONE Stop: 08/03/19 06:26 Fentanyl (Sublimaze) Confirm Administered Dose 100 mcg .ROUTE .STK-MED ONE Stop: 08/03/19 08:16 Fentanyl (Sublimaze) 50 mcg IVPUSH Q5M PRN PRN Reason: Pain Stop: 08/03/19 18:00 Last Admin: 08/03/19 10:01 Dose: 50 mcg Lactated Ringer's (Ringers, Lactated) 1,000 mls @ 125 mls/hr IV ASDIRECTED [facility] Stop: 08/03/19 23:00 Last Admin: 08/03/19 15:03 Dose: 125 mls/hr Lidocaine HCl (Xylocaine-Mpf 1%) Confirm Administered Dose 6 mls @ as directed .ROUTE .STK-MED ONE Stop: 08/03/19 06:27 Cefazolin Sodium/Dextrose 2 gm (/ Premix) 50 mls @ 100 mls/hr IV Q8H [facility] Stop: 08/04/19 06:59 Last Admin: 08/04/19 06:03 Dose: 100 mls/hr Lactated Ringer's (Ringers, Lactated) Confirm Administered Dose 1,000 mls @ as directed .ROUTE .STK-MED ONE Stop: 08/03/19 07:40 Iodine (Iodine 2% Mild Tincture) Confirm Administered Dose 30 ml .ROUTE .STK- MED ONE Stop: 08/03/19 06:19 Last Admin: 08/03/19 08:04 Dose: 18 ml Ketorolac Tromethamine (Toradol) 15 mg IVPUSH Q6H PRN PRN Reason: Pain Last Admin: 08/03/19 15:04 Dose: 15 mg Lidocaine/Sodium Bicarbonate (Buffered Lidocaine 1% In Ns 8.4%) 0.25 ml IDERM ONETIME PRN PRN Reason: Prior to IV Start Stop: 08/03/19 18:00 Last Admin: 08/03/19 06:41 Dose: 0.25 ml Midazolam HCl (Versed 1 Mg/Ml) Confirm Administered Dose 2 mg .ROUTE .STK-MED ONE Stop: 08/03/19 06:26 Ondansetron HCl (Zofran) Confirm Administered Dose 4 mg .ROUTE .STK-MED ONE Stop: 08/03/19 06:26 Propofol (Diprivan 20 Ml) Confirm Administered Dose 200 mg .ROUTE .STK-MED ONE Stop: 08/03/19 06:26 Rocuronium [place] (Zemuron) Confirm Administered Dose 50 mg .ROUTE .STK-MED ONE Stop: 08/03/19 06:26 Ropivacaine (Naropin 0.5%) Confirm Administered Dose 30 ml .ROUTE .STK-MED ONE Stop: 08/03/19 06:34 Sodium Chloride (Saline Flush) 10 ml FLUSH ASDIRECTED PRN PRN Reason: Keep Vein Open Stop: 08/03/19 18:00 Tranexamic Acid (Cyklokapron) Confirm Administered Dose 1,000 mg .ROUTE .STK- MED ONE Stop: 08/03/19 06:19 Last Admin: 08/03/19 08:06 Dose: 1,000 mg Vancomycin HCl (Vancomycin) Confirm Administered Dose 1 gm .ROUTE .STK-MED ONE Stop: 08/03/19 06:19 Last Admin: 08/03/19 08:05 Dose: 1 gm - Exam Wound/Incisions: Dressing Dry and Intact General: Alert, Cooperative, No Acute Distress Lungs: Normal Respiratory Effort Extremities: Other (NVS intact for RUE. ) Sepsis Event Note - Evaluation Sepsis Screening Result: No Definite Risk - Focused Exam Vital Signs: Vital Signs Temp Pulse Resp BP Pulse Ox Pulse Ox 08/04/19 04:00 98.6 F 96 18 116/72 98 08/03/19 23:45 99.5 F 18 123/77 98 08/03/19 20:55 98 Date Exam was Performed: 08/04/19 Time Exam was Performed: 08:51 - Problem List Review Problem List Initiated/Reviewed/Updated: Yes - My Orders Last 24 Hours: Active Orders 24 hr Category Date Time Status Communication Order [RC] ROUTINE Care 08/03/19 09:28 Active Pulse Oximetry [RC] ASDIRECTED Care 08/03/19 09:28 Active Ready for Discharge [RC] PER UNIT ROUTINE Care 08/04/19 08:50 Ordered Regular Diet [DIET] Diet 08/03/19 Lunch Active Aspirin [Ecotrin] Med 08/04/19 09:00 Active 325 mg PO DAILY Docusate Sodium [Colace] Med 08/03/19 21:00 Active 100 mg PO BID Ezetimibe [Zetia] Med 08/04/19 09:00 Active 5 mg PO DAILY Famotidine [Pepcid] Med 08/03/19 21:00 Active 20 mg PO Q12H Loratadine [Claritin] Med 08/04/19 09:00 Active 10 mg PO DAILY Multivitamins,Therapeutic [Thera] Med 08/03/19 21:00 Active 1 each PO BID Propranolol [Inderal] Med 08/04/19 09:00 Active 40 mg PO DAILY lisinopriL [Prinivil] Med 08/04/19 09:00 Active 20 mg PO DAILY Medication Orders Hydrocodone Bitart/Acetaminophen ([place] 325-5 Mg) 1 - 2 tab PO Q4H PRN PRN Reason: Pain Last Admin: 08/04/19 05:09 Dose: 1 tab Admin: 08/03/19 23:20 Dose: 1 tab Admin: 08/03/19 15:03 Dose: 1 tab Admin: 08/03/19 10:03 Dose: 2 tab Aspirin (Ecotrin) 325 mg PO DAILY [facility] Bisacodyl (Dulcolax) 5 mg PO DAILY PRN PRN Reason: Constipation Cyclobenzaprine HCl (Flexeril) 5 mg PO BID PRN PRN Reason: Spasms Last Admin: 08/03/19 20:12 Dose: 5 mg Docusate Sodium (Colace) 100 mg PO BID [facility] Last Admin: 08/03/19 20:12 Dose: 100 mg Ezetimibe (Zetia) 5 mg PO DAILY [facility] Famotidine (Pepcid) 20 mg PO Q12H [facility] Last Admin: 08/03/19 20:12 Dose: 20 mg Lisinopril (Prinivil) 20 mg PO DAILY [facility] Loratadine (Claritin) 10 mg PO DAILY [facility] Magnesium Hydroxide (Milk Of Magnesia) 30 ml PO BID PRN PRN Reason: Constipation Morphine Sulfate (Morphine) 2 mg IVPUSH Q2H PRN PRN Reason: Breakthrough Pain Last Admin: 08/04/19 01:34 Dose: 2 mg Multivitamins (Thera) 1 each PO BID [facility] Last Admin: 08/03/19 20:12 Dose: 1 each Naloxone HCl (Narcan) 0.1 mg IVPUSH Q5M PRN PRN Reason: Oversedation Ondansetron HCl (Zofran) 4 mg IVPUSH Q6H PRN PRN Reason: Nausea/Vomiting Propranolol HCl (Inderal) 40 mg PO DAILY [facility] Senna (Senna) 8.6 mg PO BID PRN PRN Reason: Constipation - Assessment Assessment (Free Text/Narrative):: POD#1 - right reverse TSA - Plan Plan (Free Text/Narrative):: 1. 325mg ASA PO daily, frequent mobility, TEDs. 2. Outpatient OT or PT. 3. Hgb 11.7. 4. Discharge to home today if cleared by Hospitalist service. The pt's case was discussed with Dr. Bejarano.
[2019-08-04] MEDS ORDERED: Lisinopril 20 MG Tab PO SCH (09:00)
[2019-08-04] MEDS ORDERED: Ezetimibe 10 MG Tab PO SCH (09:00)
[2019-08-04] MEDS ORDERED: Aspirin 325 MG Tab.EC PO SCH (09:00)
[2019-08-04] MEDS ORDERED: Loratadine 10 MG Tab PO SCH (09:00)
[2019-08-04] MEDS ORDERED: Propranolol 40 MG Tab PO SCH (09:00)
--- NOTE | 2019-08-04 09:16 | PCM.DCSUM1 ---
Discharge Summary - Hospital Course Brief History: Nhan is an 84 yo male who underwent right reverse TSA with Dr. Bejarano on 08-03-2019. The procedure was completed under general anesthesia with regional block. The pt tolerated the procedure well and was admitted to the ICU under Medical-Surgical status. Medical management was provided by the Hospitalist service. The pt's Hospital course was uneventful. The pt's Hgb on POD#1 was 11.7 and creat 1.4. On POD#1, 325mg ASA daily was initiated for VTE prophylaxis. SCDs and TEDs were also ordered. A Mepilex dressing was placed at the incision site at the time of surgery and remained clean and dry. The pt participated in P.T. and O.T. and progressed well. On POD#1, the pt was deemed appropriate to discharge to home with his . - Discharge Data Discharge Date: 08/04/19 Discharge Disposition: Home, Self-Care 01 Condition: Good - Referral to Home Health Primary Care Physician: Bandar Crooks MD - Patient Summary/Data Consults: Consultations 08/03/19 06:50 OT Evaluation and Treatment [CONS] Routine PT Evaluation and Treatment [CONS] Routine 08/03/19 06:58 Consult to Physician [CONS] Routine - Patient Instructions Diet: Usual Diet as Tolerated Activity: Apply Ice, As Tolerated, Elevate Extremity Activity, Other: No forceful use of the surgical limb. Driving: Do Not Drive Showering/Bathing: May Shower Wound/Incision Care: Keep Operative Site/Wound Site Clean and Dry, Do NOT Change Dressing Notify Provider of: Fever, Increased Pain, Swelling and Redness, Drainage, Nausea and/or Vomiting Other/Special Instructions: Please get up and moving around EVERY HOUR while awake. This helps to prevent blood clots. Please have help with mobility as needed. Take a short walk in your home every hour while awake. Please take 325mg Aspirin daily. The aspirin is being used for blood clot prevention and not for pain management so please do not miss a dose of the medication. You do not need to take the 81mg aspirin daily while using the 325mg aspirin daily. After the 325mg aspirin course is completed in 40 days, you will return to the 81mg aspirin dose. At home, please complete the exercises that you learned during the Hospital stay. Schedule for occupational or physical therapy. Use the pain medication as needed. The medication may cause drowsiness and constipation. Contact your primary care provider for instructions if you are constipated. You may use a stool softener like docusate sodium or Colace 100mg twice daily and/or a laxative like Miralax daily for constipation. Increase your water and fiber intake while you are using the pain medication. Discontinue use of the pain medication as soon as able. Please do not use other medications that may cause drowsiness (other pain medications, anxiety pills, cold medications, sleeping pills, etc) while using the prescription pain medication. Do not use alcohol while using the pain medication. You may use acetaminophen or Tylenol for pain management, however, please ensure you are not using over 4000 mg or 4 grams of acetaminophen per day from all sources. Your pain medication has 325mg of acetaminophen per tablet. Wear the CACHORRO hose during the day and you may remove these at night. Elevate the limb to decrease swelling. Place ice to the area often. Place a towel between your skin and the blue pad. Use the incentive spirometer often. Take deep breaths throughout the day. Please keep the dressing in place until follow-up. Notify the Clinic if the dressing becomes saturated. . If you have diabetes, please closely monitor your blood sugars and notify your primary care provider with abnormal values. Elevated blood sugars increases the risk of infection. Call the Clinic with questions or concerns - [phone]. - Discharge Plan *PRESCRIPTION DRUG MONITORING PROGRAM REVIEWED*: No *COPY OF PRESCRIPTION DRUG MONITORING REPORT IN PATIENT HAL: No Prescriptions/Med Rec: Acetaminophen/HYDROcodone [[place] 325-5 MG] 1 - 2 tab PO Q4H PRN #60 tablet PRN Reason: Pain Aspirin [Ecotrin EC] 325 mg PO DAILY #40 tab.ec Cyclobenzaprine [Flexeril] 5 mg PO BID PRN #10 tablet PRN Reason: Spasms Home Medications: Home Meds Cetirizine [ZyrTEC] 10 mg PO DAILY 09/22/15 [History] Ezetimibe [Zetia] 5 mg PO DAILY 09/22/15 [History] Fosinopril [Monopril] 40 mg PO DAILY 09/22/15 [History] Hydrochlorothiazide 12.5 mg PO DAILY 09/22/15 [History] Multivitamin [Multivitamins] 1 tab PO BID 09/22/15 [History] Propranolol HCl 40 mg PO BID 09/22/15 [History] Acetaminophen/HYDROcodone [[place] 325-5 MG] 1 - 2 tab PO Q4H PRN #60 tablet 08/04 [Rx] Aspirin [Ecotrin EC] 325 mg PO DAILY #40 tab.ec 08/04/19 [Rx] Cyclobenzaprine [Flexeril] 5 mg PO BID PRN #10 tablet 08/04/19 [Rx] Docusate Sodium [Colace] 100 mg PO BID cap 08/04/19 [Rx] Sennosides [Senna] 8.6 mg PO BID PRN tablet 08/04/19 [Rx] bisacodyL [Dulcolax] 5 mg PO DAILY PRN tablet 08/04/19 [Rx] Referrals: Betty Rodriguez PA-C [Physician Cte Teacher] - - Discharge Summary/Plan Comment DC Time >30 min.: No - Patient Data Vitals - Most Recent: Last Vital Signs Temp 98.6 F 08/04/19 04:00 Pulse 96 08/04/19 04:00 Resp 18 08/04/19 04:00 BP 116/72 08/04/19 04:00 Pulse Ox 98 08/04/19 04:00 Weight - Most Recent: 220 lb I&O - Last 24 hours: Intake & Output 08/03/19 08/04/19 08/04/19 22:59 06:59 14:59 Intake Total 110 1979 Output Total 400 Balance -290 1979 Lab Results - Last 24 hrs: Laboratory Results - last 24 hr 08/04/19 08/04/19 Range/Units 05:14 05:14 WBC 10.20 H (4.23-9.07) K/mm3 RBC 3.70 L (4.63-6.08) M/mm3 Hgb 11.7 L D (13.7-17.5) gm/dl Hct 36.8 L (40.1-51.0) % MCV 99.5 H (79.0-92.2) fl MCH 31.6 (25.7-32.2) pg MCHC 31.8 L (32.2-35.5) g/dl RDW Std Deviation 43.1 (35.1-43.9) fL Plt Count 184 (163-337) K/mm3 MPV 9.4 (9.4-12.3) fl Sodium 138 (136-145) mEq/L Potassium 3.8 (3.5-5.1) mEq/L Chloride 102 (98-107) mEq/L Carbon Dioxide 29 (21-32) mEq/L Anion Gap 10.8 (5-15) BUN 15 (7-18) mg/dL Creatinine 1.4 H (0.7-1.3) mg/dL Est Cr Clr Drug Dosing 36.08 mL/min Estimated GFR (MDRD) 48 (>60) mL/min BUN/Creatinine Ratio 10.7 L (14-18) Glucose 164 H (83-115) mg/dL Calcium 8.3 L (8.5-10.1) mg/dL Total Bilirubin 0.8 (0.2-1.0) mg/dL AST 27 (15-37) U/L ALT 30 (16-63) U/L Alkaline Phosphatase 58 (46-116) U/L Total Protein 6.4 (6.4-8.2) g/dl Albumin 2.7 L (3.4-5.0) g/dl Globulin 3.7 gm/dL Albumin/Globulin Ratio 0.7 L (1-2) Med Orders - Current: Current Medications Hydrocodone Bitart/Acetaminophen ([place] 325-5 Mg) 1 - 2 tab PO Q4H PRN PRN Reason: Pain Last Admin: 08/04/19 05:09 Dose: 1 tab Aspirin (Ecotrin) 325 mg PO DAILY BRIANA Bisacodyl (Dulcolax) 5 mg PO DAILY PRN PRN Reason: Constipation Cyclobenzaprine HCl (Flexeril) 5 mg PO BID PRN PRN Reason: Spasms Last Admin: 08/03/19 20:12 Dose: 5 mg Docusate Sodium (Colace) 100 mg PO BID BRIANA Last Admin: 08/03/19 20:12 Dose: 100 mg Ezetimibe (Zetia) 5 mg PO DAILY BRIANA Famotidine (Pepcid) 20 mg PO BEDTIME BRIANA Lisinopril (Prinivil) 20 mg PO DAILY BRIANA Loratadine (Claritin) 10 mg PO DAILY BRIANA Magnesium Hydroxide (Milk Of Magnesia) 30 ml PO BID PRN PRN Reason: Constipation Morphine Sulfate (Morphine) 2 mg IVPUSH Q2H PRN PRN Reason: Breakthrough Pain Last Admin: 08/04/19 01:34 Dose: 2 mg Multivitamins (Thera) 1 each PO BID [facility] Last Admin: 08/03/19 20:12 Dose: 1 each Naloxone HCl (Narcan) 0.1 mg IVPUSH Q5M PRN PRN Reason: Oversedation Ondansetron HCl (Zofran) 4 mg IVPUSH Q6H PRN PRN Reason: Nausea/Vomiting Propranolol HCl (Inderal) 40 mg PO DAILY [facility] Senna (Senna) 8.6 mg PO BID PRN PRN Reason: Constipation Discontinued Medications Hydrocodone Bitart/Acetaminophen ([place] 325-5 Mg) 1 - 2 tab PO Q4H PRN PRN Reason: Pain Cefazolin Sodium (Ancef) Confirm Administered Dose 2 gm .ROUTE .STK-MED ONE Stop: 08/03/19 06:19 Last Admin: 08/03/19 08:04 Dose: 2 gm Cefazolin Sodium (Ancef) Confirm Administered Dose 2 gm .ROUTE .STK-MED ONE Stop: 08/03/19 06:31 Ephedrine Sulfate (Ephedrine 25 Mg/5 Ml Syringe) Confirm Administered Dose 25 mg IV .STK-MED ONE Stop: 08/03/19 07:32 Famotidine (Pepcid) 20 mg PO Q12H [facility] Last Admin: 08/03/19 20:12 Dose: 20 mg Fentanyl (Sublimaze) Confirm Administered Dose 100 mcg .ROUTE .STK-MED ONE Stop: 08/03/19 06:26 Fentanyl (Sublimaze) Confirm Administered Dose 100 mcg .ROUTE .STK-MED ONE Stop: 08/03/19 08:16 Fentanyl (Sublimaze) 50 mcg IVPUSH Q5M PRN PRN Reason: Pain Stop: 08/03/19 18:00 Last Admin: 08/03/19 10:01 Dose: 50 mcg Lactated Ringer's (Ringers, Lactated) 1,000 mls @ 125 mls/hr IV ASDIRECTED [facility] Stop: 08/03/19 23:00 Last Admin: 08/03/19 15:03 Dose: 125 mls/hr Lidocaine HCl (Xylocaine-Mpf 1%) Confirm Administered Dose 6 mls @ as directed .ROUTE .STK-MED ONE Stop: 08/03/19 06:27 Cefazolin Sodium/Dextrose 2 gm (/ Premix) 50 mls @ 100 mls/hr IV Q8H BRIANA Stop: 08/04/19 06:59 Last Admin: 08/04/19 06:03 Dose: 100 mls/hr Lactated Ringer's (Ringers, Lactated) Confirm Administered Dose 1,000 mls @ as directed .ROUTE .STK-MED ONE Stop: 08/03/19 07:40 Iodine (Iodine 2% Mild Tincture) Confirm Administered Dose 30 ml .ROUTE .STK- MED ONE Stop: 08/03/19 06:19 Last Admin: 08/03/19 08:04 Dose: 18 ml Ketorolac Tromethamine (Toradol) 15 mg IVPUSH Q6H PRN PRN Reason: Pain Last Admin: 08/03/19 15:04 Dose: 15 mg Lidocaine/Sodium Bicarbonate (Buffered Lidocaine 1% In Ns 8.4%) 0.25 ml IDERM ONETIME PRN PRN Reason: Prior to IV Start Stop: 08/03/19 18:00 Last Admin: 08/03/19 06:41 Dose: 0.25 ml Midazolam HCl (Versed 1 Mg/Ml) Confirm Administered Dose 2 mg .ROUTE .STK-MED ONE Stop: 08/03/19 06:26 Ondansetron HCl (Zofran) Confirm Administered Dose 4 mg .ROUTE .STK-MED ONE Stop: 08/03/19 06:26 Propofol (Diprivan 20 Ml) Confirm Administered Dose 200 mg .ROUTE .STK-MED ONE Stop: 08/03/19 06:26 Rocuronium [place] (Zemuron) Confirm Administered Dose 50 mg .ROUTE .STK-MED ONE Stop: 08/03/19 06:26 Ropivacaine (Naropin 0.5%) Confirm Administered Dose 30 ml .ROUTE .STK-MED ONE Stop: 08/03/19 06:34 Sodium Chloride (Saline Flush) 10 ml FLUSH ASDIRECTED PRN PRN Reason: Keep Vein Open Stop: 08/03/19 18:00 Tranexamic Acid (Cyklokapron) Confirm Administered Dose 1,000 mg .ROUTE .STK- MED ONE Stop: 08/03/19 06:19 Last Admin: 08/03/19 08:06 Dose: 1,000 mg Vancomycin HCl (Vancomycin) Confirm Administered Dose 1 gm .ROUTE .STK-MED ONE Stop: 08/03/19 06:19 Last Admin: 08/03/19 08:05 Dose: 1 gm
[2019-08-04 09:34] VITALS: BP 141/76; PULSE 105
[2019-08-04] MEDS: Docusate Sodium 100 MG Cap PO SCH (09:37)
[2019-08-04] MEDS: Multivitamins,Therapeutic Tab PO SCH (09:37)
[2019-08-04] MEDS ORDERED: Famotidine 20 MG Tab PO SCH (21:00)
--- NOTE | 2019-08-07 13:14 | PCM.OPNOTE ---
- General Post-Op/Procedure Note Date of Surgery/Procedure: 08/03/19 Operative Procedure(s): right reverse total shoulder arthroplasty Pre Op Diagnosis: right shoulder rotator cuff tear arthropathy Post-Op Diagnosis: Same Anesthesia Technique: General ET Tube, Regional Block Primary Surgeon: Dread Bejarano Anesthesia Provider: Trent Wayne Podiatry Professor: Betty Rodriguez Podiatry Professor: Annamarie Roche EBL in mLs: 150 Complications: None Condition: Good Free Text/Narrative:: 9 stem 36+4 +6 liner
--- NOTE | 2019-08-07 16:11 | OR ---
DATE OF OPERATION: 08/03/2019 SURGEON: Dread Bejarano MD OPERATION PERFORMED: Right reverse total shoulder arthroplasty. PREOPERATIVE DIAGNOSIS: Right shoulder rotator cuff tear arthropathy. POSTOPERATIVE DIAGNOSIS: Right shoulder rotator cuff tear arthropathy. ANESTHESIA: General endotracheal intubation with regional interscalene block. ANESTHESIA PROVIDER: Gustavo Garg. ASSISTANTS: 1. Betty Rodriguez PA-C. 2. Annamarie Roche LPN. ESTIMATED BLOOD LOSS: 150 mL. COMPLICATIONS: None. CONDITION: Stable. IMPLANTS: 1. Arthrex size 9, 135-degree humeral stem. 2. Arthrex size 36, +4 Glenosphere. 3. Arthrex size small glenoid baseplate. 4. Arthrex +6 mm polyethylene liner. DESCRIPTION OF PROCEDURE: The patient was identified in the preoperative holding area where the proper site was marked and identified by the surgeon. The patient was taken back to the operating theater where, after adequate anesthesia, the patient's right upper extremity was sterilely prepped and draped in the usual sterile fashion. OR time-out was performed. The patient received 2 g of IV Ancef. The patient was placed in the reverse Trendelenburg position, and standard deltopectoral incision was made. This was taken down to the cephalic vein which was identified. The cephalic vein and the deltoid were retracted laterally. The subdeltoid and subacromial spaces adhesions were removed. At this time, the clavipectoral fascia was incised, and the conjoined tendon was retracted medially. The anterior humeral circumflex vessels were then ligated. Attention was turned to the biceps. A #2 FiberWire was used for tying of the biceps just near the pectoralis major tendon. The sheath was then opened. Again, the biceps tendon was tenotomized and was brought back all the way to the level of the glenoid and was resected. Peel down of the subscapularis tendon was then done at this time, and the humeral head was dislocated. Neck cut was then completed and found to be adequate. Attention was turned to the humerus. Anterior and posterior glenoid retractors were then placed. Circumferential removal of the labrum and biceps tendon was done as well as a partial capsulectomy. Guidepin was then placed in a center-center position with roughly 10-degree inferior tilt. The reamer for the small 25 mm baseplate was then utilized until I had good bleeding cancellous bone, and then the peripheral reamer for a 36 head Glenosphere was then utilized. The central drill hole was then drilled and then was tapped. The glenoid baseplate was screwed into place. It was found to have adequate bicortical purchase. Inferior and superior locking screws were then placed, a 36 +4 Glenosphere was impacted in place, and the set screw was placed. Attention was turned to the humerus. Starting with a 5 broach, it was broached up to a size 9 which was found to be rotationally and vertically stable. The central peg was then placed, and the proximal humeral reamer was then utilized. Trial components with +3 were then brought in, and the patient was noted to have just slight laxity, although no gross instability. A +6 was then placed and had adequate tension of the deltoid as well as the conjoined tendon. The patient's shoulder was stable throughout range of motion. C-arm fluoroscopy showed the components to be aligned and stable throughout range of motion. The trial and implants were then removed. The Arthrex 9 humeral stem 135 degrees with +6 liner was constructed on the back table, and en bloc, was impacted into the humerus. The shoulder was then relocated, and again C-arm fluoroscopy was utilized, making sure there was no fractures and all components were aligned. 1 L of dilute Betadine solution was irrigated through the shoulder along with 3 L of pulse lavage irrigation with Ancef. Topical tranexamic acid and vancomycin powder were applied. The patient had 2-0 Vicryl used subcutaneously, and Prineo was used for the skin. He had a sterile soft dressing applied and was sent to the PACU in stable condition. MMODAL /[id number]
== END 2019-08-04 10:35 | disposition home or self-care (01) | DRG 483 ==
LOC: UNDOADMIN 06:00 → JD.ICU 06:00
PROVIDERS: ADMIT Orthopaedic Surgery; ATTEND Orthopaedic Surgery
PROC: 0RRJ00Z Replacement of Right Shoulder Joint with Reverse Ball and Socket Synthetic Substitute, Open Approach (ICD-10-PCS; principal; 2019-08-03)
DX: M19.011 Primary osteoarthritis, right shoulder (principal); I10 Essential (primary) hypertension; G47.33 Obstructive sleep apnea (adult) (pediatric); N40.0 Benign prostatic hyperplasia without lower urinary tract symptoms; H54.7 Unspecified visual loss; K21.9 Gastro-esophageal reflux disease without esophagitis; H26.9 Unspecified cataract; E78.5 Hyperlipidemia, unspecified; Z85.038 Personal history of other malignant neoplasm of large intestine; Z87.891 Personal history of nicotine dependence; Z79.82 Long term (current) use of aspirin; Z79.899 Other long term (current) drug therapy; Z85.46 Personal history of malignant neoplasm of prostate; Z90.79 Acquired absence of other genital organ(s); Z98.890 Other specified postprocedural states; Z86.010 Personal history of colon polyps; Z99.81 Dependence on supplemental oxygen; Z99.89 Dependence on other enabling machines and devices; Z88.8 Allergy status to other drugs, medicaments and biological substances
CPT/HCPCS: 01638; 36415; 64415; 73020-26-RT; 73020-RT; 76000; 76000-26; 80053; 85027; 87641; 97110-GP; 97116-GP; 97161-GP; 97165-GO; 97530-GP; 97535-GO; 99222; 99231; A9270-GY; C1713; C1776; J0690; J1885; J2001; J2250; J2270; J2405; J2704; J2795; J3010; J3370; J7120

== ENCOUNTER 2019-12-08 01:35 | Observation (INO) | payer MEDICARE, OTHER ==
[2019-12-08] MEDS ORDERED: Alum Hydrox/Mag Hydrox/Simeth 30 ML, Lidocaine 2% 15 ML PO ONE ×2 (02:12)
--- NOTE | 2019-12-08 02:13 | EDM.PDOC ---
ED HPI GENERAL MEDICAL PROBLEM - General Chief Complaint: Chest Pain Stated Complaint: CHEST PAIN Time Seen by Provider: 12/08/19 02:07 - History of Present Illness INITIAL COMMENTS - FREE TEXT/NARRATIVE: 84-year-old male presents the emergency room with chest pain. This chest pains been going on for about 4 hours now. Patient describes the pain is actually being upper abdominal points to his area below the xiphoid as being the most tender. States the pain radiates into his back and radiates upward. Patient states it reminds him very much of when his gallbladder acted up. Patient denies any nausea or vomiting. He is not having any associated shortness of breath the pain does not radiate into his arms. Patient denies prior heart disease or stroke. Patient is however treated for hyperlipidemia hypertension and takes a baby aspirin a day. The patient never smoked however does have family history of heart attacks. Chest Pain Score (Numeric/FACES): 8 - Related Data Allergies Allergy/AdvReac Type Severity Reaction Status Date / Time Vvtzpix-Jsr-Nyv Reductase AdvReac Intermediate Muscle Verified 12/08/19 10:10 Inhibitor Aches Home Meds: Home Meds Ezetimibe [Zetia] 5 mg PO DAILY 09/22/15 [History] Fosinopril [Monopril] 40 mg PO DAILY 09/22/15 [History] Hydrochlorothiazide 12.5 mg PO DAILY 09/22/15 [History] Multivitamin [Multivitamins] 1 tab PO BID 09/22/15 [History] Propranolol HCl 40 mg PO BID 09/22/15 [History] Acetaminophen [Tylenol] 650 mg PO Q8HR PRN 12/08/19 [History] Aspirin [Ecotrin EC] 81 mg PO DAILY 12/08/19 [History] Cetirizine [ZyrTEC] 10 mg PO DAILY 12/08/19 [History] Fluocinonide [Lidex 0.05% Top Soln] 60 ml TOP BID PRN 12/08/19 [History] Nystatin [Nystatin Crm] 1 applic TOP BID 12/08/19 [History] Triamcinolone Acetonide [Triamcinolone Acetonide 0.025%] 1 applic TOP BID 12/08/19 [History] Past Medical History HEENT History: Reports: Cataract, Impaired Vision, Other (See Below) Other HEENT History: otorrhea of left ear, otogenic pain, nasal polyps Cardiovascular History: Reports: High Cholesterol, Hypertension Respiratory History: Reports: Sleep Apnea Gastrointestinal History: Reports: Colon Polyp, GERD, PUD, Other (See Below) Other Gastrointestinal History: colon neoplasm, hemorrhage of rectum/anus Genitourinary History: Reports: BPH CARDIOPULMONARY SPECIALIST History: Reports: None Musculoskeletal History: Reports: Other (See Below) Other Musculoskeletal History: joint pain, carpal tunnel syndrome, knee pain Neurological History: Reports: Other (See Below) Other Neuro History: cerviclagia, tremor, paresthesia Psychiatric History: Reports: None Endocrine/Metabolic History: Reports: None Hematologic History: Reports: None Immunologic History: Reports: None Oncologic (Cancer) History: Reports: Prostate Dermatologic History: Reports: Other (See Below) Other Dermatologic History: skin hypertrophy - Past Surgical History Head Surgeries/Procedures: Reports: None HEENT Surgical History: Reports: Myringotomy w Tube(s), Naso-Sinus Surgery, Other (See Below) Other HEENT Surgeries/Procedures: uvulectomy Cardiovascular Surgical History: Reports: None Respiratory Surgical History: Reports: None GI Surgical History: Reports: Colonoscopy, Other (See Below) Other GI Surgeries/Procedures: hemorrhoidectomy Male Surgical History: Reports: TURP-Transurethral Resection of Prostate Endocrine Surgical History: Reports: None Neurological Surgical History: Reports: None Musculoskeletal Surgical History: Reports: Other (See Below) Other Musculoskeletal Surgeries/Procedures:: carpal tunnel release, right knee arthroscopy, right ulnar nerve transposition Oncologic Surgical History: Reports: None Social & Family History - Family History Family Medical History: Noncontributory Cardiac: Reports: [place] - Tobacco Use Smoking Status *Q: Never Smoker - Caffeine Use Caffeine Use: Reports: Tea ED ROS GENERAL - Review of Systems Review Of Systems: See Below Constitutional: Reports: No Symptoms HEENT: Reports: No Symptoms Respiratory: Reports: No Symptoms Cardiovascular: Reports: Chest Pain GI/Abdominal: Reports: Abdominal Pain. Denies: Constipation, Diarrhea, Nausea, Vomiting : Reports: No Symptoms Musculoskeletal: Reports: No Symptoms Skin: Reports: No Symptoms Neurological: Reports: No Symptoms ED EXAM, GENERAL - Physical Exam Exam: See Below Exam Limited By: No Limitations General Appearance: Alert, No Apparent Distress Head: Atraumatic, Normocephalic Neck: Normal Inspection, Supple, Non-Tender, Full Range of Motion. No: Lymphadenopathy (L), Lymphadenopathy (R) Respiratory/Chest: Lungs Clear, Normal Breath Sounds, No Accessory Muscle Use Cardiovascular: Regular Rate, Rhythm, No Edema, No Murmur GI/Abdominal: Normal Bowel Sounds, Soft, Other (He has some mid epigastric discomfort and to a lesser degree left upper quadrant discomfort. This pretty much mimics the pain that brought him in tonight) Back Exam: Normal Inspection. No: CVA Tenderness (L), CVA Tenderness (R) Extremities: Normal Inspection, Pedal Edema (Scant pretibial edema) Neurological: Alert, Oriented, Normal Cognition Course - Vital Signs Last Recorded V/S: Last Vital Signs Temp 36.5 C 12/08/19 15:00 Pulse 60 12/08/19 01:42 Resp 17 12/08/19 15:00 BP 121/66 12/08/19 15:00 Pulse Ox 97 12/08/19 15:02 - Orders/Labs/Meds Orders: Active Orders 24 hr Category Date Time Status EKG Documentation Completion [RC] STAT Care 12/08/19 02:08 Active Medication Orders Acetaminophen (Tylenol) 650 mg PO Q6H FORMERLY [facility], 1928–1983 Last Admin: 12/08/19 16:59 Dose: 650 mg Documented by: WAI Ondansetron HCl (Zofran) 4 mg IVPUSH Q6H PRN PRN Reason: Nausea Oxycodone HCl (Oxycodone) 5 mg PO Q6H PRN PRN Reason: Pain Last Admin: 12/08/19 18:35 Dose: 5 mg Documented by: WAI Propranolol HCl (Inderal) 40 mg PO BID FOR[facility], [facility] Labs: Laboratory Tests 12/08/19 12/08/19 12/08/19 Range/Units 01:54 01:54 01:54 WBC 12.44 H (4.23-9.07) K/mm3 RBC 4.38 L (4.63-6.08) M/mm3 Hgb 14.0 (13.7-17.5) gm/dl Hct 42.4 (40.1-51.0) % MCV 96.8 H (79.0-92.2) fl MCH 32.0 (25.7-32.2) pg MCHC 33.0 (32.2-35.5) g/dl RDW Std Deviation 44.7 H (35.1-43.9) fL Plt Count 238 (163-337) K/mm3 MPV 8.8 L (9.4-12.3) fl Neut % (Auto) 75.3 H (34.0-67.9) % Lymph % (Auto) 12.7 L (21.8-53.1) % [place] % (Auto) 8.9 (5.3-12.2) % Eos % (Auto) 2.6 (0.8-7.0) Baso % (Auto) 0.3 (0.1-1.2) % Neut # (Auto) 9.36 H (1.78-5.38) K/mm3 Lymph # (Auto) 1.58 (1.32-3.57) K/mm3 [place] # (Auto) 1.11 H (0.30-0.82) K/mm3 Eos # (Auto) 0.32 (0.04-0.54) K/mm3 Baso # (Auto) 0.04 (0.01-0.08) K/mm3 PT 10.9 (9.7-12.0) SECONDS INR 1.00 APTT 31 (22-31) SECONDS Sodium 139 (136-145) mEq/L Potassium 4.1 (3.5-5.1) mEq/L Chloride 99 (98-107) mEq/L Carbon Dioxide 32 (21-32) mEq/L Anion Gap 12.1 (5-15) BUN 28 H (7-18) mg/dL Creatinine 1.7 H (0.7-1.3) mg/dL Est Cr Clr Drug Dosing 29.71 mL/min Estimated GFR (MDRD) 39 (>60) mL/min BUN/Creatinine Ratio 16.5 (14-18) Glucose 153 H (83-115) mg/dL Calcium 9.1 (8.5-10.1) mg/dL Total Bilirubin 0.4 (0.2-1.0) mg/dL AST 23 (15-37) U/L ALT 46 (16-63) U/L Alkaline Phosphatase 101 (46-116) U/L Troponin I < 0.017 (0.00-0.056) ng/mL Total Protein 8.0 (6.4-8.2) g/dl Albumin 3.8 (3.4-5.0) g/dl Globulin 4.2 gm/dL Albumin/Globulin Ratio 0.9 L (1-2) 12/07/ Range/Units 04:05 WBC (4.23-9.07) K/mm3 RBC (4.63-6.08) M/mm3 Hgb (13.7-17.5) gm/dl Hct (40.1-51.0) % MCV (79.0-92.2) fl MCH (25.7-32.2) pg MCHC (32.2-35.5) g/dl RDW Std Deviation (35.1-43.9) fL Plt Count (163-337) K/mm3 MPV (9.4-12.3) fl Neut % (Auto) (34.0-67.9) % Lymph % (Auto) (21.8-53.1) % [place] % (Auto) (5.3-12.2) % Eos % (Auto) (0.8-7.0) Baso % (Auto) (0.1-1.2) % Neut # (Auto) (1.78-5.38) K/mm3 Lymph # (Auto) (1.32-3.57) K/mm3 [place] # (Auto) (0.30-0.82) K/mm3 Eos # (Auto) (0.04-0.54) K/mm3 Baso # (Auto) (0.01-0.08) K/mm3 PT (9.7-12.0) SECONDS INR APTT (22-31) SECONDS Sodium (136-145) mEq/L Potassium (3.5-5.1) mEq/L Chloride (98-107) mEq/L Carbon Dioxide (21-32) mEq/L Anion Gap (5-15) BUN (7-18) mg/dL Creatinine (0.7-1.3) mg/dL Est Cr Clr Drug Dosing mL/min Estimated GFR (MDRD) (>60) mL/min BUN/Creatinine Ratio (14-18) Glucose (83-115) mg/dL Calcium (8.5-10.1) mg/dL Total Bilirubin (0.2-1.0) mg/dL AST (15-37) U/L ALT (16-63) U/L Alkaline Phosphatase (46-116) U/L Troponin I < 0.017 (0.00-0.056) ng/mL Total Protein (6.4-8.2) g/dl Albumin (3.4-5.0) g/dl Globulin gm/dL Albumin/Globulin Ratio (1-2) Meds: Medications Generic Name Dose Route Start Last Admin Trade Name Freq PRN Reason Stop Dose Admin Acetaminophen 650 mg 12/08/19 16:00 12/08/19 16:59 Tylenol PO 650 mg Q6H BRIANA Administration Ondansetron HCl 4 mg 12/08/19 09:23 Zofran IVPUSH Q6H PRN Nausea Oxycodone HCl 5 mg 12/08/19 15:51 12/08/19 18:35 Oxycodone PO 5 mg Q6H PRN Administration Pain Propranolol HCl 40 mg 12/09/19 09:00 Inderal PO BID BRIANA Discontinued Medications Generic Name Dose Route Start Last Admin Trade Name Freq PRN Reason Stop Dose Admin Bupivacaine HCl/Epinephrine Bitart Confirm 12/08/19 10:53 12/08/19 12:58 Marcaine 0.5%/Epinephrine 1:200,000 Administered 12/08/19 10:54 36 ml Dose Administration 50 ml .ROUTE .STK-MED ONE Cefazolin Sodium Confirm 12/08/19 12:30 Ancef Administered 12/08/19 12:31 Dose 2 gm .ROUTE .STK-MED ONE Al Hydroxide/Mg Hydroxide 30 0 ml 12/08/19 02:12 12/08/19 02:22 ml/ Lidocaine HCl 15 ml PO 12/08/19 02:13 45 ml ONETIME ONE Administration Esmolol HCl Confirm 12/08/19 13:04 Esmolol Administered 12/08/19 13:05 Dose 100 mg .ROUTE .STK-MED ONE Fentanyl Confirm 12/08/19 12:29 Sublimaze Administered 12/08/19 12:30 Dose 250 mcg .ROUTE .STK-MED ONE Fentanyl 100 mcg 12/08/19 13:23 Sublimaze IVPUSH 12/08/19 18:00 ONETIME PRN Pain Hydromorphone HCl 0.5 mg 12/08/19 03:15 12/08/19 03:22 Dilaudid IVPUSH 12/08/19 03:16 0.5 mg ONETIME ONE Administration Hydromorphone HCl Confirm 12/08/19 04:47 12/08/19 04:51 Dilaudid Administered 12/08/19 04:48 Not Given Dose 0.5 mg .ROUTE .STK-MED ONE Hydromorphone HCl 0.25 mg 12/08/19 04:49 12/08/19 04:50 Dilaudid IVPUSH 12/08/19 04:50 0.25 mg ONETIME ONE Administration Hydromorphone HCl 0.25 mg 12/08/19 06:23 12/08/19 06:30 Dilaudid IVPUSH 12/08/19 06:24 0.25 mg ONETIME ONE Administration Hydromorphone HCl 0.5 mg 12/08/19 07:46 12/08/19 07:51 Dilaudid IVPUSH 12/08/19 07:47 0.5 mg ONETIME ONE Administration Hydromorphone HCl 0.5 mg 12/08/19 13:23 Dilaudid IVPUSH 12/08/19 18:00 ONETIME PRN Pain (severe 7-10) Lactated Ringer's 500 mls @ 500 mls/hr 12/08/19 03:15 12/08/19 03:22 Ringers, Lactated IV 12/08/19 04:14 500 mls/hr .BOLUS ONE Administration Piperacillin Sod/Tazobactam 100 mls @ 200 mls/hr 12/08/19 07:15 12/08/19 07:27 Sod 3.375 gm/ Sodium Chloride IV 12/08/19 07:44 200 mls/hr ONETIME ONE Administration Piperacillin Sod/Tazobactam 100 mls @ 200 mls/hr 12/08/19 07:21 12/08/19 08:01 Sod 4.5 gm/ Sodium Chloride IV 12/08/19 07:44 Not Given ONETIME ONE Lactated Ringer's 1,000 mls @ 125 mls/hr 12/08/19 09:30 Ringers, Lactated IV ASDIRECTED BRIANA Lactated Ringer's 1,000 mls @ 1,000 mls/hr 12/08/19 09:18 12/08/19 10:26 Ringers, Lactated IV 12/08/19 10:17 1,000 mls/hr .BOLUS ONE Administration Lidocaine HCl Confirm 12/08/19 12:31 Xylocaine-Mpf 1% Administered 12/08/19 12:32 Dose 4 mls @ as directed .ROUTE .STK-MED ONE Lactated Ringer's Confirm 12/08/19 14:54 Ringers, Lactated Administered 12/08/19 14:55 Dose 1,000 mls @ as directed .ROUTE .STK-MED ONE Metoprolol Tartrate Confirm 12/08/19 13:16 Lopressor Administered 12/08/19 13:17 Dose 5 mg .ROUTE .STK-MED ONE Midazolam HCl Confirm 12/08/19 12:29 Versed 1 Mg/Ml Administered 12/08/19 12:30 Dose 2 mg .ROUTE .STK-MED ONE Miscellaneous Medication Confirm 12/08/19 13:17 Phenylephrine 1 Mg/10 Ml-Ns Administered 12/08/19 13:18 Dose 1 mg IV .STK-MED ONE Morphine Sulfate 1 mg 12/08/19 09:32 12/08/19 10:27 Morphine IVPUSH 1 mg Q4H PRN Administration Pain Ondansetron HCl Confirm 12/08/19 12:31 Zofran Administered 12/08/19 12:32 Dose 8 mg .ROUTE .STK-MED ONE Propofol Confirm 12/08/19 12:29 Diprivan 20 Ml Administered 12/08/19 12:30 Dose 200 mg .ROUTE .STK-MED ONE Rocuronium Bandon Confirm 12/08/19 12:29 Zemuron Administered 12/08/19 12:30 Dose 50 mg .ROUTE .STK-MED ONE - Re-Assessments/Exams Free Text/Narrative Re-Assessment/Exam: 12/08/19 02:23 KG shows no acute changes no changes from an EKG done 3 years ago. His blood pressure was elevated when he came in it is come down a little bit to 173/84 we will continue to watch this. His exam is consistent with gastritis possibly reflux we will try a GI cocktail cardiac and GI labs ordered. 12/08/19 03:19 Patient had no relief with a GI cocktail now his pain is moving lower into his abdomen but still in the right upper quadrant. We will give him a little bit of Dilaudid. We will check a 4 AM troponin and gallbladder ultrasound. 12/08/19 04:44 Second troponin is negative gallbladder ultrasound is done results pending. 12/08/19 06:36 Wound is suspicious for cholecystitis. He has some gallbladder wall thickening however no. Cholecystic fluid is noted common bile duct measures 3.8 to 5.8 mm no stones visualized. Case was discussed with Dr. Roque, our surgeon who is on-call, who will come and visit with the patient here shortly. Departure - Departure Time of Disposition: 06:30 Disposition: Refer to Observation Clinical Impression: Cholecystitis Sepsis Event Note (ED) - Evaluation Sepsis Screening Result: No Definite Risk - My Orders Last 24 Hours: My Active Orders 12/08/19 02:08 EKG Documentation Completion [RC] STAT - Assessment/Plan Last 24 Hours: My Active Orders 12/08/19 02:08 EKG Documentation Completion [RC] STAT
[2019-12-08] MEDS ORDERED: Lactated Ringers 500 ML IV ONE (03:15)
[2019-12-08] MEDS ORDERED: HYDROmorphone 0.5 MG/0.5 ML Syringe IVPUSH ONE ×4 (03:15→07:46)
[2019-12-08] MEDS ORDERED: HYDROmorphone 0.5 MG/0.5 ML Syringe ONE (04:47)
--- NOTE | 2019-12-08 06:40 | US ---
Limited abdominal ultrasound: Multiple real-time images of the upper right abdomen were obtained. Findings: Gallbladder somewhat dilated. Numerous gallstones are seen with gallbladder sludge. No pericholecystic [place] is seen. No biliary duct dilatation is appreciated. Liver contains no focal parenchymal abnormality. Visualized portions of the pancreas shows no discrete abnormality. Right kidney shows no hydronephrosis. Small cyst appears to be present within the superior kidney measuring 2.3 cm. Inferior vena cava is patent. Main portal vein shows normal hepatopedal flow. Impression: 1. Gallbladder mildly dilated with gallstones and sludge. No pericholecystic fluid or biliary duct dilatation is seen. 2. Small renal cyst. No additional abnormality is appreciated. Diagnostic code #3 This report was dictated in MDT I agree with preliminary report from [facility]ario, finalized on 12/08/19, 6:09 AM Central Daylight Time
--- NOTE | 2019-12-08 06:40 | CR ---
Chest: Portable view of the chest was obtained. Comparison: Prior chest x-ray of 09/22/15. Heart size is normal. Tortuous thoracic aorta is seen. Lungs show no acute parenchymal change. Right shoulder prosthesis is noted. Impression: 1. Findings as noted above. 2. Nothing acute is seen on portable chest x-ray. Diagnostic code #2 This report was dictated in MDT
[2019-12-08] MEDS ORDERED: Piperacillin/Tazobactam 3.375 GM in Sodium Chloride 0.9% 100 ML IV ONE (07:15)
[2019-12-08] MEDS ORDERED: Piperacillin/Tazobactam 4.5 GM in Sodium Chloride 0.9% 100 ML IV ONE (07:21)
[2019-12-08] MEDS ORDERED: Lactated Ringers 1,000 ML IV ONE (09:18)
[2019-12-08] MEDS ORDERED: Ondansetron 4 MG/2 ML SDV IVPUSH PRN (09:23)
[2019-12-08] MEDS ORDERED: Lactated Ringers 1,000 ML IV SCH (09:30)
[2019-12-08] MEDS ORDERED: Morphine 2 MG/ML SYRINGE IVPUSH PRN (09:32)
[2019-12-08] MEDS ORDERED: Bupivacaine 0.5%/EPINEPHrine 1:200,000 50 ML MDV ONE (10:53)
--- NOTE | 2019-12-08 12:10 | PCM.PREANE ---
Preanesthetic Assessment - Anesthesia/Transfusion/Family Hx Anesthesia History: Prior Anesthesia Without Reaction Transfusion History: Unknown - Review of Systems General: Fatigue Pulmonary: No Symptoms Cardiovascular: Other (Elevated BP) Gastrointestinal: No Symptoms Neurological: No Symptoms Other: Reports: None - Physical Assessment NPO Status Date: 12/07/19 NPO Status Time: 23:00 Vital Signs: Last Vital Signs Temp 97.6 F 12/08/19 01:42 Pulse 60 12/08/19 01:42 Resp 16 12/08/19 01:42 BP 172/92 H 12/08/19 11:00 Pulse Ox 99 12/08/19 01:42 Height: 1.68 m Weight: 94.211 kg ASA Class: 3E Mental Status: Alert & Oriented x3 Airway Class: Mallampati = 3 Dentition: Reports: Dentures, Edentulous Thyro-Mental Finger Breadths: 3 Mouth Opening Finger Breadths: 3 ROM/Head Extension: Limited/Partial Lungs: Clear to Auscultation, Normal Respiratory Effort Cardiovascular: Regular Rate, Regular Rhythm - Lab Values: Laboratory Last Values WBC 12.44 K/mm3 (4.23-9.07) H 12/08/19 01:54 RBC 4.38 M/mm3 (4.63-6.08) L 12/08/19 01:54 Hgb 14.0 gm/dl (13.7-17.5) 12/08/19 01:54 Hct 42.4 % (40.1-51.0) 12/08/19 01:54 MCV 96.8 fl (79.0-92.2) H 12/08/19 01:54 MCH 32.0 pg (25.7-32.2) 12/08/19 01:54 MCHC 33.0 g/dl (32.2-35.5) 12/08/19 01:54 RDW Std Deviation 44.7 fL (35.1-43.9) H 12/08/19 01:54 Plt Count 238 K/mm3 (163-337) 12/08/19 01:54 MPV 8.8 fl (9.4-12.3) L 12/08/19 01:54 Neut % (Auto) 75.3 % (34.0-67.9) H 12/08/19 01:54 Lymph % (Auto) 12.7 % (21.8-53.1) L 12/08/19 01:54 [place] % (Auto) 8.9 % (5.3-12.2) 12/08/19 01:54 Eos % (Auto) 2.6 (0.8-7.0) 12/08/19 01:54 Baso % (Auto) 0.3 % (0.1-1.2) 12/08/19 01:54 Neut # (Auto) 9.36 K/mm3 (1.78-5.38) H 12/08/19 01:54 Lymph # (Auto) 1.58 K/mm3 (1.32-3.57) 12/08/19 01:54 [place] # (Auto) 1.11 K/mm3 (0.30-0.82) H 12/08/19 01:54 Eos # (Auto) 0.32 K/mm3 (0.04-0.54) 12/08/19 01:54 Baso # (Auto) 0.04 K/mm3 (0.01-0.08) 12/08/19 01:54 PT 10.9 SECONDS (9.7-12.0) 12/08/19 01:54 INR 1.00 12/08/19 01:54 APTT 31 SECONDS (22-31) 12/08/19 01:54 Sodium 139 mEq/L (136-145) 12/08/19 01:54 Potassium 4.1 mEq/L (3.5-5.1) 12/08/19 01:54 Chloride 99 mEq/L (98-107) 12/08/19 01:54 Carbon Dioxide 32 mEq/L (21-32) 12/08/19 01:54 Anion Gap 12.1 (5-15) 12/08/19 01:54 BUN 28 mg/dL (7-18) H 12/08/19 01:54 Creatinine 1.7 mg/dL (0.7-1.3) H 12/08/19 01:54 Est Cr Clr Drug Dosing 29.71 mL/min 12/08/19 01:54 Estimated GFR (MDRD) 39 mL/min (>60) 12/08/19 01:54 BUN/Creatinine Ratio 16.5 (14-18) 12/08/19 01:54 Glucose 153 mg/dL (83-115) H 12/08/19 01:54 Calcium 9.1 mg/dL (8.5-10.1) 12/08/19 01:54 Total Bilirubin 0.4 mg/dL (0.2-1.0) 12/08/19 01:54 AST 23 U/L (15-37) 12/08/19 01:54 ALT 46 U/L (16-63) 12/08/19 01:54 Alkaline Phosphatase 101 U/L (46-116) 12/08/19 01:54 Troponin I < 0.017 ng/mL (0.00-0.056) 12/08/19 04:05 Total Protein 8.0 g/dl (6.4-8.2) 12/08/19 01:54 Albumin 3.8 g/dl (3.4-5.0) 12/08/19 01:54 Globulin 4.2 gm/dL 12/08/19 01:54 Albumin/Globulin Ratio 0.9 (1-2) L 12/08/19 01:54 SARS-CoV-2 RNA (RT-PCR) Negative (NEGATIVE) 12/08/19 09:20 - Imaging/EKG Impressions: Possible old inferior MO, patient denies - Allergies Allergies/Adverse Reactions: Allergies Allergy/AdvReac Type Severity Reaction Status Date / Time Wfjrusv-Wmi-Upd Reductase AdvReac Intermediate Muscle Verified 12/08/19 10:10 Inhibitor Aches - Anesthesia Plan Beta Andrea: Propranolol Med Last Dose Date: 12/07/19 Med Last Dose Time: 08:00 (estimated) - Acknowledgements Anesthesia Type Planned: General Anesthesia Pt an Appropriate Candidate for the Planned Anesthesia: Yes Alternatives and Risks of Anesthesia Discussed w Pt/Guardian: Yes Pt/Guardian Understands and Agrees with Anesthesia Plan: Yes PreAnesthesia Questionnaire HEENT History: Reports: Cataract, Impaired Vision, Other (See Below) Other HEENT History: otorrhea of left ear, otogenic pain, nasal polyps Cardiovascular History: Reports: High Cholesterol, Hypertension Respiratory History: Reports: Sleep Apnea Other Respiratory History: wear cpap at night Gastrointestinal History: Reports: Colon Polyp, GERD, PUD, Other (See Below) Other Gastrointestinal History: colon neoplasm, hemorrhage of rectum/anus Genitourinary History: Reports: BPH Musculoskeletal History: Reports: Other (See Below) Other Musculoskeletal History: joint pain, carpal tunnel syndrome, knee pain Neurological History: Reports: Other (See Below) Other Neuro History: cerviclagia, tremor, paresthesia Endocrine/Metabolic History: Reports: Obesity/BMI 30+ Oncologic (Cancer) History: Reports: Prostate Dermatologic History: Reports: Other (See Below) Other Dermatologic History: skin hypertrophy - Infectious Disease History Infectious Disease History: Reports: Chicken Pox, Measles, Mumps - Past Surgical History Head Surgeries/Procedures: Reports: None HEENT Surgical History: Reports: Cataract Surgery, Myringotomy w Tube(s), Naso-Sinus Surgery, Other (See Below) Other HEENT Surgeries/Procedures: uvulectomy Cardiovascular Surgical History: Reports: None Respiratory Surgical History: Reports: None GI Surgical History: Reports: Colonoscopy, Other (See Below) Other GI Surgeries/Procedures: hemorrhoidectomy Male Surgical History: Reports: TURP-Transurethral Resection of Prostate Endocrine Surgical History: Reports: None Neurological Surgical History: Reports: None Musculoskeletal Surgical History: Reports: Other (See Below) Other Musculoskeletal Surgeries/Procedures:: carpal tunnel release, right knee arthroscopy, right ulnar nerve transposition Oncologic Surgical History: Reports: None - SUBSTANCE USE Smoking Status *Q: Former Smoker Recreational Drug Use History: No - HOME MEDS Home Medications: Home Meds Ezetimibe [Zetia] 5 mg PO DAILY 09/22/15 [History] Fosinopril [Monopril] 40 mg PO DAILY 09/22/15 [History] Hydrochlorothiazide 12.5 mg PO DAILY 09/22/15 [History] Multivitamin [Multivitamins] 1 tab PO BID 09/22/15 [History] Propranolol HCl 40 mg PO BID 09/22/15 [History] Aspirin [Ecotrin EC] 81 mg PO DAILY 12/08/19 [History] Fluocinonide [Lidex 0.05% Top Soln] 60 ml TOP BID 12/08/19 [History] - CURRENT (IN HOUSE) MEDS Current Meds: Current Medications Lactated Ringer's (Ringers, Lactated) 1,000 mls @ 125 mls/hr IV ASDIRECTED BRIANA Morphine Sulfate (Morphine) 1 mg IVPUSH Q4H PRN PRN Reason: Pain Last Admin: 12/08/19 10:27 Dose: 1 mg Documented by: Ondansetron HCl (Zofran) 4 mg IVPUSH Q6H PRN PRN Reason: Nausea Propranolol HCl (Inderal) 40 mg PO BID BRIANA Discontinued Medications Bupivacaine HCl/Epinephrine Bitart (Marcaine 0.5%/Epinephrine 1:200,000) Confirm Administered Dose 50 ml .ROUTE .STK-MED ONE Stop: 12/08/19 10:54 Al Hydroxide/Mg Hydroxide 30 (ml/ Lidocaine HCl 15 ml) 0 ml PO ONETIME ONE Stop: 12/08/19 02:13 Last Admin: 12/08/19 02:22 Dose: 45 ml Documented by: Hydromorphone HCl (Dilaudid) 0.5 mg IVPUSH ONETIME ONE Stop: 12/08/19 03:16 Last Admin: 12/08/19 03:22 Dose: 0.5 mg Documented by: Hydromorphone HCl (Dilaudid) Confirm Administered Dose 0.5 mg .ROUTE .STK-MED ONE Stop: 12/08/19 04:48 Last Admin: 12/08/19 04:51 Dose: Not Given Documented by: Hydromorphone HCl (Dilaudid) 0.25 mg IVPUSH ONETIME ONE Stop: 12/08/19 04:50 Last Admin: 12/08/19 04:50 Dose: 0.25 mg Documented by: Hydromorphone HCl (Dilaudid) 0.25 mg IVPUSH ONETIME ONE Stop: 12/08/19 06:24 Last Admin: 12/08/19 06:30 Dose: 0.25 mg Documented by: Hydromorphone HCl (Dilaudid) 0.5 mg IVPUSH ONETIME ONE Stop: 12/08/19 07:47 Last Admin: 12/08/19 07:51 Dose: 0.5 mg Documented by: Lactated Ringer's (Ringers, Lactated) 500 mls @ 500 mls/hr IV .BOLUS ONE Stop: 12/08/19 04:14 Last Admin: 12/08/19 03:22 Dose: 500 mls/hr Documented by: Piperacillin Sod/Tazobactam (Sod 3.375 gm/ Sodium Chloride) 100 mls @ 200 mls/hr IV ONETIME ONE Stop: 12/08/19 07:44 Last Admin: 12/08/19 07:27 Dose: 200 mls/hr Documented by: Piperacillin Sod/Tazobactam (Sod 4.5 gm/ Sodium Chloride) 100 mls @ 200 mls/hr IV ONETIME ONE Stop: 12/08/19 07:44 Last Admin: 12/08/19 08:01 Dose: Not Given Documented by: Lactated Ringer's (Ringers, Lactated) 1,000 mls @ 1,000 mls/hr IV .BOLUS ONE Stop: 12/08/19 10:17 Last Admin: 12/08/19 10:26 Dose: 1,000 mls/hr Documented by:
[2019-12-08] MEDS ORDERED: Midazolam 1 MG/ML 2 ML SDV ONE (12:29)
[2019-12-08] MEDS ORDERED: Rocuronium 50 MG/5 ML Vial ONE (12:29)
[2019-12-08] MEDS ORDERED: fentaNYL 250 MCG/5 ML SDV ONE (12:29)
[2019-12-08] MEDS ORDERED: Propofol 200 MG/20 ML SDV ONE (12:29)
[2019-12-08] MEDS ORDERED: ceFAZolin 1 GM Vial ONE (12:30)
[2019-12-08] MEDS ORDERED: Ondansetron 4 MG/2 ML SDV ONE (12:31)
[2019-12-08] MEDS ORDERED: Lidocaine 1% 4 ML ONE (12:31)
[2019-12-08] MEDS ORDERED: Succinylcholine/Sod PF 100 MG/5 ML SYRINGE IV ONE (12:36)
--- NOTE | 2019-12-08 12:47 | PCM.HP.2 ---
H&P History of Present Illness - General Date of Service: 12/08/19 Admit Problem/Dx: Admission Diagnosis/Problem Admission Diagnosis/Problem Cholelithiasis Source of Information: Patient, Provider History Limitations: Reports: No Limitations - History of Present Illness Initial Comments - Free Text/Narative: Mr. Jc is an 84 yo man presenting with complaint of chest pressure and pain. This began last evening. The pain is better after receiving narcotics in the ER. Cardiac workup was negative, but RUQ US shows findings of gallstones, and the patient has a WBC >12,000. He has had RUQ pain in the past, and has been told he has gallstones, but no further treatment had been pursued. For his age he appears relatively healthy, but is obese with HTN and sleep apnea. He has no cardiac history and does not take any blood thinner. He has had no abdominal operations before. He tolerated anesthesia well for a shoulder surgery performed within the past year. Chest Pain Score (Numeric/FACES): 8 - Related Data Allergies/Adverse Reactions: Allergies Allergy/AdvReac Type Severity Reaction Status Date / Time [id number] Reductase AdvReac Intermediate Muscle Verified 12/08/19 10:10 Inhibitor Aches Home Medications: Home Meds Ezetimibe [Zetia] 5 mg PO DAILY 09/22/15 [History] Fosinopril [Monopril] 40 mg PO DAILY 09/22/15 [History] Hydrochlorothiazide 12.5 mg PO DAILY 09/22/15 [History] Multivitamin [Multivitamins] 1 tab PO BID 09/22/15 [History] Propranolol HCl 40 mg PO BID 09/22/15 [History] Acetaminophen [Tylenol] 650 mg PO Q8HR PRN 12/08/19 [History] Aspirin [Ecotrin EC] 81 mg PO DAILY 12/08/19 [History] Cetirizine [ZyrTEC] 10 mg PO DAILY 12/08/19 [History] Fluocinonide [Lidex 0.05% Top Soln] 60 ml TOP BID PRN 12/08/19 [History] Nystatin [Nystatin Crm] 1 applic TOP BID 12/08/19 [History] Triamcinolone Acetonide [Triamcinolone Acetonide 0.025%] 1 applic TOP BID 12/08/19 [History] Past Medical History HEENT History: Reports: Cataract, Impaired Vision, Other (See Below) Other HEENT History: otorrhea of left ear, otogenic pain, nasal polyps Cardiovascular History: Reports: High Cholesterol, Hypertension Respiratory History: Reports: Sleep Apnea Other Respiratory History: wear cpap at night Gastrointestinal History: Reports: Colon Polyp, GERD, PUD, Other (See Below) Other Gastrointestinal History: colon neoplasm, hemorrhage of rectum/anus Genitourinary History: Reports: BPH [employer]ATOR History: Reports: None Musculoskeletal History: Reports: Other (See Below) Other Musculoskeletal History: joint pain, carpal tunnel syndrome, knee pain Neurological History: Reports: Other (See Below) Other Neuro History: cerviclagia, tremor, paresthesia Psychiatric History: Reports: None Endocrine/Metabolic History: Reports: Obesity/BMI 30+ Hematologic History: Reports: None Immunologic History: Reports: None Oncologic (Cancer) History: Reports: Prostate Dermatologic History: Reports: Other (See Below) Other Dermatologic History: skin hypertrophy - Infectious Disease History Infectious Disease History: Reports: Chicken Pox, Measles, Mumps - Past Surgical History Head Surgeries/Procedures: Reports: None HEENT Surgical History: Reports: Cataract Surgery, Myringotomy w Tube(s), Naso- Sinus Surgery, Other (See Below) Other HEENT Surgeries/Procedures: uvulectomy Cardiovascular Surgical History: Reports: None Respiratory Surgical History: Reports: None GI Surgical History: Reports: Colonoscopy, Other (See Below) Other GI Surgeries/Procedures: hemorrhoidectomy Male Surgical History: Reports: TURP-Transurethral Resection of Prostate Endocrine Surgical History: Reports: None Neurological Surgical History: Reports: None Musculoskeletal Surgical History: Reports: Other (See Below) Other Musculoskeletal Surgeries/Procedures:: carpal tunnel release, right knee arthroscopy, right ulnar nerve transposition Oncologic Surgical History: Reports: None Social & Family History - Family History Family Medical History: Noncontributory Cardiac: Reports: ME - Tobacco Use Smoking Status *Q: Former Smoker Used Tobacco, but Quit: Yes Month/Year Tobacco Last Used: many years ago - Caffeine Use Caffeine Use: Reports: Tea - Recreational Drug Use Recreational Drug Use: No H&P Review of Systems - Review of Systems: Review Of Systems: See Below General: Reports: Malaise Cardiovascular: Reports: Chest Pain, Blood Pressure Problem Gastrointestinal: Reports: Abdominal Pain Skin: Reports: No Symptoms Hematologic/Lymphatic: Reports: No Symptoms Exam - Exam Exam: See Below - Vital Signs Vital Signs: Last Vital Signs Temp 36.4 C 12/08/19 01:42 Pulse 60 12/08/19 01:42 Resp 16 12/08/19 01:42 BP 172/92 H 12/08/19 11:00 Pulse Ox 99 12/08/19 01:42 Weight: 94.211 kg - Exam General: Alert, Oriented, Cooperative HEENT: Conjunctiva Clear Neck: Trachea Midline Lungs: Clear to Auscultation Cardiovascular: Regular Rate, Regular Rhythm GI/Abdominal Exam: Soft, No Mass Skin: Warm, Dry Psychiatric: Alert - Patient Data Lab Results Last 24 hrs: Laboratory Results - last 24 hr 12/08/19 12/08/19 12/08/19 Range/Units 01:54 01:54 01:54 WBC 12.44 H (4.23-9.07) K/mm3 RBC 4.38 L (4.63-6.08) M/mm3 Hgb 14.0 (13.7-17.5) gm/dl Hct 42.4 (40.1-51.0) % MCV 96.8 H (79.0-92.2) fl MCH 32.0 (25.7-32.2) pg MCHC 33.0 (32.2-35.5) g/dl RDW Std Deviation 44.7 H (35.1-43.9) fL Plt Count 238 (163-337) K/mm3 MPV 8.8 L (9.4-12.3) fl Neut % (Auto) 75.3 H (34.0-67.9) % Lymph % (Auto) 12.7 L (21.8-53.1) % Polk % (Auto) 8.9 (5.3-12.2) % Eos % (Auto) 2.6 (0.8-7.0) Baso % (Auto) 0.3 (0.1-1.2) % Neut # (Auto) 9.36 H (1.78-5.38) K/mm3 Lymph # (Auto) 1.58 (1.32-3.57) K/mm3 Polk # (Auto) 1.11 H (0.30-0.82) K/mm3 Eos # (Auto) 0.32 (0.04-0.54) K/mm3 Baso # (Auto) 0.04 (0.01-0.08) K/mm3 PT 10.9 (9.7-12.0) SECONDS INR 1.00 APTT 31 (22-31) SECONDS Sodium 139 (136-145) mEq/L Potassium 4.1 (3.5-5.1) mEq/L Chloride 99 (98-107) mEq/L Carbon Dioxide 32 (21-32) mEq/L Anion Gap 12.1 (5-15) BUN 28 H (7-18) mg/dL Creatinine 1.7 H (0.7-1.3) mg/dL Est Cr Clr Drug Dosing 29.71 mL/min Estimated GFR (MDRD) 39 (>60) mL/min BUN/Creatinine Ratio 16.5 (14-18) Glucose 153 H (83-115) mg/dL Calcium 9.1 (8.5-10.1) mg/dL Total Bilirubin 0.4 (0.2-1.0) mg/dL AST 23 (15-37) U/L ALT 46 (16-63) U/L Alkaline Phosphatase 101 (46-116) U/L Troponin I < 0.017 (0.00-0.056) ng/mL Total Protein 8.0 (6.4-8.2) g/dl Albumin 3.8 (3.4-5.0) g/dl Globulin 4.2 gm/dL Albumin/Globulin Ratio 0.9 L (1-2) SARS-CoV-2 RNA (RT-PCR) (NEGATIVE) 12/08/19 12/08/19 Range/Units 04:05 09:20 WBC (4.23-9.07) K/mm3 RBC (4.63-6.08) M/mm3 Hgb (13.7-17.5) gm/dl Hct (40.1-51.0) % MCV (79.0-92.2) fl MCH (25.7-32.2) pg MCHC (32.2-35.5) g/dl RDW Std Deviation (35.1-43.9) fL Plt Count (163-337) K/mm3 MPV (9.4-12.3) fl Neut % (Auto) (34.0-67.9) % Lymph % (Auto) (21.8-53.1) % Polk % (Auto) (5.3-12.2) % Eos % (Auto) (0.8-7.0) Baso % (Auto) (0.1-1.2) % Neut # (Auto) (1.78-5.38) K/mm3 Lymph # (Auto) (1.32-3.57) K/mm3 Polk # (Auto) (0.30-0.82) K/mm3 Eos # (Auto) (0.04-0.54) K/mm3 Baso # (Auto) (0.01-0.08) K/mm3 PT (9.7-12.0) SECONDS INR APTT (22-31) SECONDS Sodium (136-145) mEq/L Potassium (3.5-5.1) mEq/L Chloride (98-107) mEq/L Carbon Dioxide (21-32) mEq/L Anion Gap (5-15) BUN (7-18) mg/dL Creatinine (0.7-1.3) mg/dL Est Cr Clr Drug Dosing mL/min Estimated GFR (MDRD) (>60) mL/min BUN/Creatinine Ratio (14-18) Glucose (83-115) mg/dL Calcium (8.5-10.1) mg/dL Total Bilirubin (0.2-1.0) mg/dL AST (15-37) U/L ALT (16-63) U/L Alkaline Phosphatase (46-116) U/L Troponin I < 0.017 (0.00-0.056) ng/mL Total Protein (6.4-8.2) g/dl Albumin (3.4-5.0) g/dl Globulin gm/dL Albumin/Globulin Ratio (1-2) SARS-CoV-2 RNA (RT-PCR) Negative (NEGATIVE) Result Diagrams: 12/08/19 01:54 12/08/19 01:54 Sepsis Event Note - Evaluation Sepsis Screening Result: No Definite Risk - Focused Exam Vital Signs: Vital Signs Temp Pulse Resp BP Pulse Ox 12/08/19 11:00 172/92 H 12/08/19 01:42 36.4 C 60 16 180/89 H 99 Date Exam was Performed: 12/08/19 Time Exam was Performed: 12:42 *Q Meaningful Use (ADM) - VTE Risk Assess *Q Each Risk Factor Represents 3 Points: Age 75 Years or Greater Total Score 3 Point Risk Factors: 3 Problem List Initiated/Reviewed/Updated: Yes Orders Last 24hrs: Active Orders 24 hr Category Date Time Status Admission Status [Patient Status] [ADT] Routine ADT 12/08/19 08:45 Active EKG Documentation Completion [RC] STAT Care 12/08/19 02:08 Active NPO Now [Nothing per Oral Now Diet] [DIET] Diet 12/08/19 Breakfast Active Lactated Ringers [Ringers, Lactated] 1,000 ml Med 12/08/19 09:30 Active IV ASDIRECTED Morphine Sulfate [Morphine] Med 12/08/19 09:32 Active 1 mg IVPUSH Q4H PRN Ondansetron [Zofran] Med 12/08/19 09:23 Active 4 mg IVPUSH Q6H PRN Propranolol [Inderal] Med 12/09/19 09:00 Pending 40 mg PO BID Schedule Procedure [COMM] Routine Oth 12/08/19 09:19 Ordered Resuscitation Status Routine Resus Stat 12/08/19 10:36 Ordered Medication Orders Lactated Ringer's (Ringers, Lactated) 1,000 mls @ 125 mls/hr IV ASDIRECTED BRIANA Morphine Sulfate (Morphine) 1 mg IVPUSH Q4H PRN PRN Reason: Pain Last Admin: 12/08/19 10:27 Dose: 1 mg Documented by: UDAY Ondansetron HCl (Zofran) 4 mg IVPUSH Q6H PRN PRN Reason: Nausea Propranolol HCl (Inderal) 40 mg PO BID [facility] [place] Assessment/Plan Comment:: Acute calculous cholecystitis Plan for fluid resuscitation and laparoscopic cholecystectomy, with plan for discharge this evening vs tomorrow morning, depending on how patient does and how he feels. - Mortality Measure Prognosis:: Good
[2019-12-08] MEDS ORDERED: Esmolol 100 MG/10 ML SDV ONE (13:04)
[2019-12-08] MEDS ORDERED: Metoprolol Tartrate 5 MG/5 ML SDV ONE (13:16)
[2019-12-08] MEDS ORDERED: fentaNYL 100 MCG/2 ML SDV IVPUSH PRN (13:23)
[2019-12-08] MEDS ORDERED: HYDROmorphone 0.5 MG/0.5 ML Syringe IVPUSH PRN (13:23)
--- NOTE | 2019-12-08 14:38 | PCM.POSTAN ---
POST ANESTHESIA ASSESSMENT - MENTAL STATUS Mental Status: Somnolent - VITAL SIGNS Vital Signs: Last Vital Signs Temp 97.2 F 12/08/19 14:24 Pulse 60 12/08/19 01:42 Resp 17 12/08/19 14:24 BP 114/58 L 12/08/19 14:24 Pulse Ox 95 12/08/19 14:24 - RESPIRATORY Respiratory Status: Respiratory Rate WNL, Airway Patent, O2 Saturation Stable, Supplemental Oxygen - CARDIOVASCULAR CV Status: Pulse Rate WNL, Blood Pressure Stable - GASTROINTESTINAL GI Status: No Symptoms - PAIN Pain Score: 0 - POST OP HYDRATION Hydration Status: Adequate & Stable
[2019-12-08] MEDS ORDERED: Lactated Ringers 1,000 ML ONE (14:54)
--- NOTE | 2019-12-08 15:16 | PCM48HPAN ---
Post Anesthesia Note - EVALUATION WITHIN 48HRS OF ANESTHETIC Vital Signs in Normal Range: Yes Patient Participated in Evaluation: Yes Respiratory Function Stable: Yes Airway Patent: Yes Cardiovascular Function Stable: Yes Hydration Status Stable: Yes Pain Control Satisfactory: Yes Nausea and Vomiting Control Satisfactory: Yes Mental Status Recovered: Yes Vital Signs: Last Vital Signs Temp 36.5 C 12/08/19 15:00 Pulse 60 12/08/19 01:42 Resp 17 12/08/19 15:00 BP 121/66 12/08/19 15:00 Pulse Ox 97 12/08/19 15:02 - COMMENTS/OBSERVATIONS Free Text/Narrative:: no anesthesia complications noted
[2019-12-08] MEDS: Acetaminophen 325 MG Tab PO SCH ×2 (16:59→21:57)
[2019-12-08] MEDS: oxyCODONE 5 MG Tab PO PRN (18:35)
[2019-12-09] MEDS: Acetaminophen 325 MG Tab PO SCH ×2 (03:48→09:38)
--- NOTE | 2019-12-09 07:28 | PCM48HPAN ---
Post Anesthesia Note - EVALUATION WITHIN 48HRS OF ANESTHETIC Vital Signs in Normal Range: Yes Patient Participated in Evaluation: Yes Respiratory Function Stable: Yes Airway Patent: Yes Cardiovascular Function Stable: Yes Hydration Status Stable: Yes Pain Control Satisfactory: Yes Nausea and Vomiting Control Satisfactory: Yes Mental Status Recovered: Yes Vital Signs: Last Vital Signs Temp 36.8 C 12/09/19 03:53 Pulse 97 12/09/19 03:53 Resp 18 12/09/19 03:53 BP 137/67 12/09/19 03:53 Pulse Ox 92 L 12/09/19 03:53
[2019-12-09 08:27] VITALS: BP 142/66; PULSE 103
--- NOTE | 2019-12-09 08:32 | PCM.DCSUM1 ---
Discharge Summary - Hospital Course Free Text/Narrative:: Admitted from the emergency department yesterday with abdominal pain and findings consistent with cholecystitis. The patient was taken to the operating room for laparoscopic cholecystectomy. He had severe cholecystitis. The opeation was completed without complication. He was kept overnight post-operatively for pain control and observation and did well. He was feeling much better this morning, tolerating a diet. He was deemed fit for discharge on post-operative day 1. - Discharge Data Discharge Date: 12/09/19 Discharge Disposition: Home, Self-Care 01 Condition: Good - Referral to Home Health Primary Care Physician: Bandar Crooks MD - Patient Summary/Data Operative Procedure(s) Performed: laparoscopic cholecystectomy - Patient Instructions Diet: Usual Diet as Tolerated Activity: As Tolerated, No Lifting Over 10 Pounds Showering/Bathing: May Shower, No Tub Bathing/Swimming Wound/Incision Care: Keep Operative Site/Wound Site Clean and Dry Notify Provider of: Fever, Increased Pain, Swelling and Redness, Drainage, Nausea and/or Vomiting - Discharge Plan *PRESCRIPTION DRUG MONITORING PROGRAM REVIEWED*: Not Applicable *COPY OF PRESCRIPTION DRUG MONITORING REPORT IN PATIENT HAL: Not Applicable Prescriptions/Med Rec: oxyCODONE 5 mg PO Q6H PRN #12 tab PRN Reason: Pain Home Medications: Home Meds Ezetimibe [Zetia] 5 mg PO DAILY 09/22/15 [History] Fosinopril [Monopril] 40 mg PO DAILY 09/22/15 [History] Hydrochlorothiazide 12.5 mg PO DAILY 09/22/15 [History] Multivitamin [Multivitamins] 1 tab PO BID 09/22/15 [History] Propranolol HCl 40 mg PO BID 09/22/15 [History] Acetaminophen [Tylenol] 650 mg PO Q8HR PRN 12/08/19 [History] Aspirin [Ecotrin EC] 81 mg PO DAILY 12/08/19 [History] Cetirizine [ZyrTEC] 10 mg PO DAILY 12/08/19 [History] Fluocinonide [Lidex 0.05% Top Soln] 60 ml TOP BID PRN 12/08/19 [History] Nystatin [Nystatin Crm] 1 applic TOP BID 12/08/19 [History] Triamcinolone Acetonide [Triamcinolone Acetonide 0.025%] 1 applic TOP BID 12/08/19 [History] oxyCODONE 5 mg PO Q6H PRN #12 tab 12/09/19 [Rx] Oxygen Therapy Mode: Room Air Referrals: Bandar Crooks MD [Primary Care Provider] - - Discharge Summary/Plan Comment DC Time >30 min.: No - Patient Data Vitals - Most Recent: Last Vital Signs Temp 36.9 C 12/09/19 08:22 Pulse 103 H 12/09/19 08:22 Resp 20 12/09/19 08:22 BP 142/66 H 12/09/19 08:22 Pulse Ox 93 L 12/09/19 08:22 Weight - Most Recent: 94.256 kg I&O - Last 24 hours: Intake & Output 12/08/19 12/09/19 12/09/19 22:59 06:59 14:59 Intake Total 400 Output Total 1000 Balance -600 Lab Results - Last 24 hrs: Laboratory Results - last 24 hr 12/08/19 Range/Units 09:20 SARS-CoV-2 RNA (RT-PCR) Negative (NEGATIVE) Med Orders - Current: Current Medications Acetaminophen (Tylenol) 650 mg PO Q6H BRIANA Last Admin: 12/09/19 03:48 Dose: 650 mg Documented by: Ondansetron HCl (Zofran) 4 mg IVPUSH Q6H PRN PRN Reason: Nausea Oxycodone HCl (Oxycodone) 5 mg PO Q6H PRN PRN Reason: Pain Last Admin: 12/08/19 18:35 Dose: 5 mg Documented by: Propranolol HCl (Inderal) 40 mg PO BID BRIANA Discontinued Medications Bupivacaine HCl/Epinephrine Bitart (Marcaine 0.5%/Epinephrine 1:200,000) Confirm Administered Dose 50 ml .ROUTE .STK-MED ONE Stop: 12/08/19 10:54 Last Admin: 12/08/19 12:58 Dose: 36 ml Documented by: Cefazolin Sodium (Ancef) Confirm Administered Dose 2 gm .ROUTE .STK-MED ONE Stop: 12/08/19 12:31 Al Hydroxide/Mg Hydroxide 30 (ml/ Lidocaine HCl 15 ml) 0 ml PO ONETIME ONE Stop: 12/08/19 02:13 Last Admin: 12/08/19 02:22 Dose: 45 ml Documented by: Esmolol HCl (Esmolol) Confirm Administered Dose 100 mg .ROUTE .STK-MED ONE Stop: 12/08/19 13:05 Fentanyl (Sublimaze) Confirm Administered Dose 250 mcg .ROUTE .STK-MED ONE Stop: 12/08/19 12:30 Fentanyl (Sublimaze) 100 mcg IVPUSH ONETIME PRN PRN Reason: Pain Stop: 12/08/19 18:00 Hydromorphone HCl (Dilaudid) 0.5 mg IVPUSH ONETIME ONE Stop: 12/08/19 03:16 Last Admin: 12/08/19 03:22 Dose: 0.5 mg Documented by: Hydromorphone HCl (Dilaudid) Confirm Administered Dose 0.5 mg .ROUTE .STK-MED ONE Stop: 12/08/19 04:48 Last Admin: 12/08/19 04:51 Dose: Not Given Documented by: Hydromorphone HCl (Dilaudid) 0.25 mg IVPUSH ONETIME ONE Stop: 12/08/19 04:50 Last Admin: 12/08/19 04:50 Dose: 0.25 mg Documented by: Hydromorphone HCl (Dilaudid) 0.25 mg IVPUSH ONETIME ONE Stop: 12/08/19 06:24 Last Admin: 12/08/19 06:30 Dose: 0.25 mg Documented by: Hydromorphone HCl (Dilaudid) 0.5 mg IVPUSH ONETIME ONE Stop: 12/08/19 07:47 Last Admin: 12/08/19 07:51 Dose: 0.5 mg Documented by: Hydromorphone HCl (Dilaudid) 0.5 mg IVPUSH ONETIME PRN PRN Reason: Pain (severe 7-10) Stop: 12/08/19 18:00 Lactated Ringer's (Ringers, Lactated) 500 mls @ 500 mls/hr IV .BOLUS ONE Stop: 12/08/19 04:14 Last Admin: 12/08/19 03:22 Dose: 500 mls/hr Documented by: Piperacillin Sod/Tazobactam (Sod 3.375 gm/ Sodium Chloride) 100 mls @ 200 mls/hr IV ONETIME ONE Stop: 12/08/19 07:44 Last Admin: 12/08/19 07:27 Dose: 200 mls/hr Documented by: Piperacillin Sod/Tazobactam (Sod 4.5 gm/ Sodium Chloride) 100 mls @ 200 mls/hr IV ONETIME ONE Stop: 12/08/19 07:44 Last Admin: 12/08/19 08:01 Dose: Not Given Documented by: Lactated Ringer's (Ringers, Lactated) 1,000 mls @ 125 mls/hr IV ASDIRECTED BRIANA Lactated Ringer's (Ringers, Lactated) 1,000 mls @ 1,000 mls/hr IV .BOLUS ONE Stop: 12/08/19 10:17 Last Admin: 12/08/19 10:26 Dose: 1,000 mls/hr Documented by: Lidocaine HCl (Xylocaine-Mpf 1%) Confirm Administered Dose 4 mls @ as directed .ROUTE .STK-MED ONE Stop: 12/08/19 12:32 Lactated Ringer's (Ringers, Lactated) Confirm Administered Dose 1,000 mls @ as directed .ROUTE .STK-MED ONE Stop: 12/08/19 14:55 Metoprolol Tartrate (Lopressor) Confirm Administered Dose 5 mg .ROUTE .STK-MED ONE Stop: 12/08/19 13:17 Midazolam HCl (Versed 1 Mg/Ml) Confirm Administered Dose 2 mg .ROUTE .STK-MED ONE Stop: 12/08/19 12:30 Miscellaneous Medication (Phenylephrine 1 Mg/10 Ml-Ns) Confirm Administered Dose 1 mg IV .STK-MED ONE Stop: 12/08/19 13:18 Morphine Sulfate (Morphine) 1 mg IVPUSH Q4H PRN PRN Reason: Pain Last Admin: 12/08/19 10:27 Dose: 1 mg Documented by: Ondansetron HCl (Zofran) Confirm Administered Dose 8 mg .ROUTE .STK-MED ONE Stop: 12/08/19 12:32 Propofol (Diprivan 20 Ml) Confirm Administered Dose 200 mg .ROUTE .STK-MED ONE Stop: 12/08/19 12:30 Rocuronium Douglas (Zemuron) Confirm Administered Dose 50 mg .ROUTE .STK-MED ONE Stop: 12/08/19 12:30
--- NOTE | 2019-12-09 08:57 | PCM.PRNOTE ---
- Free Text/Narrative Note: Date: 12/08/2019 Operation: laparoscopic cholecystectomy Indication: acute calculous cholecystitis Surgeon: Timur Roque MD Pre-op antibiotics: zosyn EBL: 100 cc DVT Ppx: SCD Findings: severe cholecystitis Detailed Report: The patient was taken to the OR and placed in supine position. Time out was performed and general endotracheal anesthesia initiated. The abdomen was prepped and draped in sterile fashion. A Veress needle was inserted at Lua's point into the peritoneal cavity and insufflation was set to 15 mm Hg. Air was aspirated at the umbilicus and a 5 mm bladed trocar was inserted at this site. The 5 mm 30 degree laparoscope was inserted, and two additional 5 mm ports were placed at the left upper quadrant. The gallbladder was severely inflamed and thickened. A 12 mm trocar was placed at the subxiphoid area. A hollow laparoscopic decompression needle was used to drain about 150 cc green bile from the gallbladder at the fundus. This allowed for grasping and manipulation. The fundus was grasped and pulled anterior and cephalad. The infundibulum was grasped with the surgeon's left hand grasper, and careful dissection was performed. The cystic duct and artery were skeletonized and a critical view of safety was obtained. Weck hemolock clips were placed on these structures prior to transection with scissors. The gallbladder was then dissected from the liver bed with diathermy. This was difficult due to the degree of inflammation, and there was some hemorrhage from the raw surface of the liver as the gallbladder was cleared off. There was spillage of bile and small gallstones during this portion. Once the gallbladder was completely free, it was removed through the subxiphoid incision in an endocatch bag. The incision had to be enlarged substantially to allow passage of the gallbladder through the abdominal wall. The dissection filed was thoroughly irrigated and suctioned, and all visible stones removed with a grasper. There was some oozing bleeding from the liver which was controlled with Surgicel and FloSeal. The larger incision was closed at the level of fascia with 0 vicryl using the laparoscopic suture passer. 5 mm ports were removed under laparoscopic visualization. Pneumoperitoneum was released, and skin incisions were closed with running subcuticular vicryl suture and dressed with dermabond. The patient was extubated in the OR and transferred to the recovery unit in stable condition. Timur Roque MD General Surgery
[2019-12-09] MEDS ORDERED: Propranolol 40 MG Tab PO SCH (09:00)
[2019-12-09] MEDS: oxyCODONE 5 MG Tab PO PRN (09:39)
== END 2019-12-09 14:00 | disposition home or self-care (01) ==
LOC: SUPCPDRO 01:35 → JD.ED 01:35 → JD.MS 08:45
PROVIDERS: ADMIT Surgery; ATTEND Surgery
DX: K80.10 Calculus of gallbladder with chronic cholecystitis without obstruction (principal); K82.8 Other specified diseases of gallbladder; E78.00 Pure hypercholesterolemia, unspecified; I10 Essential (primary) hypertension; E66.9 Obesity, unspecified; K21.9 Gastro-esophageal reflux disease without esophagitis; Z20.828 Contact with and (suspected) exposure to other viral communicable diseases; Z88.8 Allergy status to other drugs, medicaments and biological substances; Z87.891 Personal history of nicotine dependence; Z79.82 Long term (current) use of aspirin; Z79.899 Other long term (current) drug therapy; Z68.33 Body mass index [BMI] 33.0-33.9, adult
CPT/HCPCS: 36415; 47562; 71045; 76705; 80053; 84484; 85025; 85610; 85730; 93005; 94760; 96361; 96365; 96375; 96376; 99285; A9270; J0330; J0690; J1170; J2001; J2250; J2270; J2370; J2405; J2543; J2704; J3010; J3490; J7050; J7120; U0002; 00790; G0378

== ENCOUNTER 2024-07-04 05:47 | Emergency (ER) | payer MEDICARE, OTHER ==
[2024-07-04] MEDS ORDERED: Iopamidol 612 MG/ML 30 ML SDV IVPUSH ONE (06:29)
[2024-07-04] MEDS ORDERED: Sodium Chloride 0.9% 10 ML Syringe FLUSH ONE (06:29)
[2024-07-04] MEDS ORDERED: Iopamidol 612 MG/ML 100 ML Bottle IVPUSH ONE (06:29)
[2024-07-04 06:39] LABS: APPEARANCE,URINE CLEAR (Clear); BILIRUBIN,URINE NEGATIVE (Negative); COLOR,URINE YELLOW (Yellow); GLUCOSE,URINE NEGATIVE (Negative); KETONES,URINE NEGATIVE (Negative); LEUKOCYTE ESTERASE,URINE NEGATIVE (Negative); NITRITE,URINE NEGATIVE (Negative); OCCULT BLOOD,URINE 2+ (Negative); PH,URINE 6.5 (5.0-8.0); PROTEIN,URINE 2+ (Negative); UROBILINOGEN,URINE 0.2 (0.2-1.0)
[2024-07-04] MEDS: Sodium Chloride 0.9% 10 ML Syringe FLUSH PRN (06:54)
[2024-07-04 06:56] LABS: BASOPHILS ABSOLUTE AUTO 0.1 K/mm3 (0.0-0.2); BASOPHILS PERCENT AUTO 0.4 % (0.0-1.0); EOSINOPHILS ABSOLUTE AUTO 0.1 K/mm3 (0.0-0.4); EOSINOPHILS PERCENT AUTO 0.7 % (0.0-6.0); HEMATOCRIT 44.8 % (42.0-52.0); HEMOGLOBIN 15.2 gm/dl (14.0-18.0); IMMATURE GRAN ABSOLUTE AUTO 0.05 K/mm3 (0.00-0.05); IMMATURE GRAN PERCENT AUTO 0.4 % (0.0-0.4); LYMPHOCYTES ABSOLUTE AUTO 1.3 K/mm3 (1.0-4.8); LYMPHOCYTES PERCENT AUTO 10.4 % (24.0-44.0); MEAN CORPUSCULAR HEMOGLOBIN 33.3 pg (28.0-32.0); MEAN CORPUSCULAR HGB CONC 33.9 g/dl (32.0-36.0); MEAN PLATELET VOLUME 8.7 fl (9.4-12.4); MONOCYTES ABSOLUTE AUTO 1.4 K/mm3 (0.0-0.8); MONOCYTES PERCENT AUTO 11.6 % (0.0-8.0); NEUTROPHILS ABSOLUTE AUTO 9.4 K/mm3 (1.8-7.7); NEUTROPHILS PERCENT AUTO 76.5 % (41.0-71.0); PLATELET COUNT,PLT 169 K/mm3 (150-400); RED BLOOD CELL COUNT 4.57 M/mm3 (4.52-5.90); WHITE BLOOD CELL COUNT,WBC 12.34 K/mm3 (3.9-11.3)
[2024-07-04 07:05] LABS: BACTERIA,URINE OCCASIONAL /hpf (FEW); MUCUS,URINE NOT SEEN /hpf (FEW); RBC,URINE 50-75 /hpf (0-5); SQUAMOUS EPITHELIAL CELLS,UR 0-5 /hpf (0-5); WBC,URINE 0-5 /hpf (0-5)
[2024-07-04 07:11] LABS: A/G RATIO 0.9 (1-2); ALBUMIN 3.5 g/dl (3.4-5.0); CREATININE 2.5 mg/dL (0.7-1.3); EST CRCL DRUG DOSING (CG) 18.43 mL/min; PROTEIN TOTAL,TP 7.5 g/dl (6.4-8.2)
[2024-07-04] MEDS: Sodium Chloride 0.9% 500 ML IV ONE (07:23)
[2024-07-04 10:51] LABS: ANION GAP 13.8 (5-15); BUN/CREATININE RATIO 11.6 (14-18); CALCIUM 8.9 mg/dL (8.5-10.1); CREATININE 2.5 mg/dL (0.7-1.3); EST CRCL DRUG DOSING (CG) 18.43 mL/min; POTASSIUM,K 3.8 mEq/L (3.5-5.1)
[2024-07-04 11:28] VITALS: BP 117/62; PULSE 86
[2024-07-04] MEDS: Acetaminophen 325 MG Tab PO ONE (11:28)
== END 2024-07-04 11:30 | disposition home or self-care (01) ==
LOC: JD.ED 05:47
DX: N13.2 Hydronephrosis with renal and ureteral calculous obstruction (principal); I10 Essential (primary) hypertension; E78.00 Pure hypercholesterolemia, unspecified; Z87.891 Personal history of nicotine dependence; Z88.8 Allergy status to other drugs, medicaments and biological substances; Z79.82 Long term (current) use of aspirin; Z79.899 Other long term (current) drug therapy
CPT/HCPCS: 36415; 74176; 80048; 80053; 81001; 83690; 85025; 93005; 96360; 96361; 99284; A9270; J7030; 93010